=== PATIENT | male | born 1945 ===

== ENCOUNTER 2017-01-23 07:15 | Inpatient (IN) ==
--- NOTE | 2017-01-18 09:33 | Cardiothoracic History & Phys ---
History of Present Illness Chief complaint: Shortness of breath and chest discomfort History of present illness: Mr. Mendez is a 71 year old male who is been followed by Dr. Doe for some time with a known diagnosis of aortic stenosis. He has become increasingly symptomatic over the past several months and Dr. Doe felt that he was approaching the point where he would need aortic valve replacement. His echocardiogram revealed a valve area of 0.7 cm. Patient underwent outpatient cardiac catheterization demonstrating critical coronary disease and was advised to have bypass surgery as well as aortic valve replacement. Patient is admitted for that purpose. Past medical history: Patient has had type 2 diabetes mellitus for some time controlled with oral medications. He also has hypercholesterolemia and hypertension. 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 Patient also has a history of appendectomy. Patient is a former smoker but quit smoking and 1996. Review of systems is noncontributory. Physical examination patient is well-developed well-nourished [place] male in no acute distress. Examination head eyes ears nose and throat show the pupils are equal react to light and extraocular motions are intact. Oropharynx is benign. Examination of the neck showed bilateral transmitted bruits but there is no thyromegaly and there are no masses. Examination of the lungs show that they are clear to percussion and auscultation and examination the heart shows a harsh systolic murmur heard best along left sternal border and radiating to the neck. There are no gallop rhythms heard. Examination of the abdomen shows that it is soft and nontender and there are no masses or organomegaly. Examination extremities shows absence below the knee of the right leg. Neurological examination is grossly within normal limits. Assessment: Aortic valve stenosis and coronary artery disease. Plan: Aortic valve replacement and coronary bypass grafting on Tuesday, 2016. Home Medications Medication Instructions Recorded Confirmed Type Aspirin [Ecotrin] 81 mg PO DAILY 10/21/14 01/14/17 History Exenatide [Byetta] 10 mcg SQ BID 10/21/14 01/14/17 History Latanoprost 0.005% Oph Soln 1 drop BOTH EYES BEDTIME 10/21/14 01/14/17 History [Xalatan 0.005% Oph Soln] Lisinopril [Zestril] 40 mg PO DAILY 10/21/14 01/14/17 History Simvastatin [Zocor] 40 mg PO BEDTIME 10/21/14 01/14/17 History Timolol 0.5% Oph Soln [Timoptic 1 drop BOTH EYES DAILY 10/21/14 01/14/17 History 0.5%] amLODIPine [Norvasc] 20 mg PO DAILY 10/21/14 01/14/17 History glipiZIDE [Glipizide] 10 mg PO DAILY 10/21/14 01/14/17 History metFORMIN [Glucophage] 850 mg PO BID W/MEALS 10/21/14 01/14/17 History Levothyroxine Tab [Synthroid Tab] 112 mcg PO DAILY@0700 01/13/17 01/14/17 History Saxagliptin HCl [Onglyza] 5 mg PO DAILY 01/13/17 01/14/17 History Allergies Allergy/AdvReac Type Severity Reaction Status Date / Time No Known Allergies Allergy Verified 01/14/17 06:58 Medical,Surgical,& Family Hx - Medical History Cardio: History of: Hypertension, Valvular Heart Disease (moderate aortic stenosis and mild mitral insufficiency), Cardiovascular Problems (HEART MURMUR SEES DR. 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
[~2017-01-23 07:15] MED LIST: CHLORHEXIDINE 4% SOLN 118 ML BOTTLE TOP SCH; DEXTROSE 50% 25 GM/50 ML SYRINGE IV PRN; DEXTROSE 50% 25 GM/50 ML VIAL IV PRN; GLUCAGON 1 MG VIAL IM PRN
[2017-01-23] MEDS ORDERED: CEFUROXIME INJ 1,500 MG in SODIUM CHLORIDE 0.9% 100 ML IV ONE (09:18)
[2017-01-23 10:47] LABS: Basophils % 1.1 % (0.0-0.8); Eosinophils # 0.1 10*3/uL (0.0-0.87); Eosinophils % 3.5 % (0.00-10.9); Hematocrit 35.3 VOL% (42.0-52.0); Hemoglobin 12.2 GM/DL (14.0-18.0); Immature Granulocytes % 0.3 %; Immature Granulocytes Absolute 0.01 #; Mean Corpuscular HGB Conc 34.6 GM/DL (32-36); Mean Corpuscular Hemoglobin 30 PG (27-34); Mean Corpuscular Volume 85.7 FL (87-102); Monocytes # 0.3 10*3/uL (0.11-0.8); Monocytes % 7.5 % (1.7-12.7); Neutrophils # 2.3 10*3/uL (1.4-7.4); Neutrophils % 61.6 % (38.7-73.9); Platelet Count 253 T/CUMM (130-400); Red Blood Count 4.12 MC/CUMM (3.8-5.5); Red Cell Distribution Width 13.2 % (9.3-17.3); White Blood Count 3.7 T/CUMM (4-12)
[2017-01-23 11:23] LABS: Albumin 4.1 G/DL (3.4-5.0); Bilirubin,Total 0.5 MG/DL (0.2-1.0); Calcium 8.8 MG/DL (8.5-10.1); Osmolality,Calculated 275.7 MOS/KG (273-304); Potassium 4.4 MMOL/L (3.5-5.1); Total Protein 7.5 G/DL (6.4-8.3)
[2017-01-23] MEDS: CHLORHEXIDINE 0.12% ORAL RINSE 60 ML BOTTLE SWISH/SPIT SCH ×3 (12:24→20:46)
[2017-01-23] MEDS: SODIUM CHLORIDE 0.9% 1,000 ML IV SCH ×2 (12:26→16:06)
--- NOTE | 2017-01-23 13:24 | XRay Report ---
XR chest 2V Date: 01/23/2017 9:24 AM History: Coronary artery disease Comparison: 01/06/2017 Technique: PA and lateral chest Findings: The heart remains normal in size with calcification in the aortic knob. Calcified granulomata/nodes with chronic scarring. Atelectasis at the lung bases with cardiac fat pads. Stable pulmonary nodule in the right midlung zone. Degenerative changes are noted. Impression: Chronic scarring in the lungs with stable right pulmonary nodule. Progressive atelectasis at the lung bases. PROCEDURE INTERPRETED AT [facility] DEPARTMENT OF RADIOLOGY Final Report Signed by: Dr. Jacqueline Grijalva
--- NOTE | 2017-01-23 14:24 | EKG Report ---
Stationary ECG Study [facility] Test Date: 01/23/2017 2:22:57 PM Pat Name: LEAH JUÁREZ Department: Room: 268 Gender: M Chief Controller Station: : 1945 Requested by: Partha Koenig Order Number: [id number] Reading MD: KATHERINE CHOUDHURY Intervals [place] Rate: 74 P: 41 IN: 179 QRS: -65 QRSD: 146 T: 30 QT: 401 QTc: 429 Interpretive Statements SINUS RHYTHM RIGHT BUNDLE BRANCH BLOCK LEFT ANTERIOR FASCICULAR BLOCK Electronically Signed On 01-24-17 14:52:12 CDT by KATHERINE CHOUDHURY [email or web address]
[2017-01-23 15:20] LABS: ABG Base Excess -0.6 MMOL/L (-2.5-2.5); ABG HCO3 23.9 MMOL/L (20-26); ABG Oxygen Saturation 95.9 % (95-100); ABG PCO2 40.5 MM HG (35-48); ABG PH 7.387 (7.35-7.45); ABG TCO2 21.8 MMOL/L (23-27); Allen Test Positive
[2017-01-23] MEDS: LEVOTHYROXINE 112 MCG TABLET PO SCH ×2 (15:42→15:47)
[2017-01-23] MEDS: glipiZIDE 10 MG TABLET PO SCH ×2 (15:43→15:46)
[2017-01-23] MEDS: sitaGLIPtin 100 MG TABLET PO SCH ×3 (15:43→15:45)
[2017-01-23] MEDS: ASPIRIN EC 81 MG TABLET PO SCH ×2 (15:43→15:46)
[2017-01-23] MEDS: amLODIPine 10 MG TABLET PO SCH ×2 (15:43→15:45)
[2017-01-23] MEDS: LATANOPROST 0.005% OPH SOLN 2.5 ML BOTTLE BOTH EYES SCH ×3 (15:44→20:45)
[2017-01-23] MEDS: SIMVASTATIN 40 MG TABLET PO SCH ×3 (15:44→20:45)
[2017-01-23] MEDS: TIMOLOL 0.5% OPH SOLN 5 ML BOTTLE BOTH EYES SCH ×2 (15:44→15:45)
[2017-01-23] MEDS: LISINOPRIL 20 MG TABLET PO SCH ×2 (15:44→15:45)
[2017-01-24] MEDS ORDERED: VANCOMYCIN 1,000 MG VIAL ONE (04:41)
[2017-01-24] MEDS ORDERED: PAPAVERINE 60 MG/2 ML VIAL ONE (04:41)
[2017-01-24] MEDS ORDERED: LORazepam 1 MG TABLET PO ONE (05:30)
[2017-01-24] MEDS ORDERED: FAMOTIDINE 20 MG TABLET PO ONE (05:30)
[2017-01-24] MEDS: LISINOPRIL 20 MG TABLET PO SCH ×2 (05:40→11:28)
[2017-01-24] MEDS: amLODIPine 10 MG TABLET PO SCH ×2 (05:40→11:28)
[2017-01-24] MEDS ORDERED: CEFUROXIME INJ 1,500 MG in SODIUM CHLORIDE 0.9% 100 ML IV ONE (06:00)
[2017-01-24] MEDS: LEVOTHYROXINE 112 MCG TABLET PO SCH (06:08)
[2017-01-24] MEDS ORDERED: PHENYLEPHRINE 20 MG/250 ML PREMIX IV ONE (06:45)
[2017-01-24] MEDS ORDERED: PHENYLEPHRINE 1 MG/10 ML SYRINGE IV ONE (06:45)
[2017-01-24] MEDS ORDERED: LIDOCAINE 1% 5 ML VIAL ONE (06:45)
[2017-01-24] MEDS ORDERED: NITROGLYCERIN 50 MG/250 ML BOTTLE IV ONE (06:45)
[2017-01-24] MEDS ORDERED: CALCIUM CHLORIDE 1,000 MG/10 ML SYRINGE IV ONE ×2 (06:45→07:39)
[2017-01-24] MEDS ORDERED: VECURONIUM 10 MG VIAL IV ONE (06:45)
[2017-01-24] MEDS ORDERED: NITROPRUSSIDE 50 MG/2 ML VIAL ONE (07:39)
[2017-01-24] MEDS ORDERED: PHENYLEPHRINE DRIP 40 MG/250 ML PREMIX IV ONE (07:39)
[2017-01-24] MEDS ORDERED: ALBUMIN 5% 12.5 GM/250 ML VIAL IV ONE ×2 (07:40→07:41)
[2017-01-24] MEDS ORDERED: POTASSIUM CHLORIDE RIDER 100 ML IV ONE (07:40)
[2017-01-24] MEDS ORDERED: INSULIN REGULAR DRIP 100 ML IV ONE (07:43)
[2017-01-24 07:51] LABS: ABG Base Excess -1.7 MMOL/L (-2.5-2.5); ABG HCO3 23.1 MMOL/L (20-26); ABG Oxygen Saturation 99.9 % (95-100); ABG PCO2 43.8 MM HG (35-48); ABG PH 7.348 (7.35-7.45); ABG TCO2 21.8 MMOL/L (23-27); Glucose Heart Surgery 172 MG/DL (74-106); Hematocrit Heart Surgery 33.4 PERCENT (42-52); Hemoglobin Heart Surgery 10.8 G/DL (14.0-18.0); Ionized Calcium Arterial 1.12 MMOL/L (1.21-1.46); PCO2 Patient Temp Arterial 43.8 MMHG; PH Patient Temp Arterial 7.348; Patient Temperature 37 CELCIUS; Potassium Heart/CVR 3.8 MMOL/L (3.5-5.1); Sodium Heart/CVR 139 MMOL/L (135-145)
[2017-01-24 07:55] LABS: Apearance,Urine CLEAR (Clear); Bilirubin,Urine Negative (Negative); Blood, Urine Negative (Negative); Glucose,Urine (UA) 150 mg/dL (Negative); Hyaline Casts,Urine 1 /LPF (0-3); Ketones,Urine 5 mg/dL (Negative); Nitrite,Urine Negative (Negative); Protein,Urine Negative; RBC,Urine 1 /HPF (0-4); Urine Color Straw (Yellow); WBC,Urine <1 /HPF (0-6)
[2017-01-24] MEDS ORDERED: DEXTROSE 5% KCL 20 MEQ 20 MEQ/1,000 ML BAG IV ONE (09:06)
[2017-01-24] MEDS ORDERED: PHENYLEPHRINE DRIP 20 MG/250 ML PREMIX IV ONE (09:06)
[2017-01-24] MEDS ORDERED: ALBUMIN 25% 25 GM/100 ML VIAL IV ONE (09:06)
[2017-01-24] MEDS ORDERED: PROTAMINE SULFATE 250 MG/25 ML VIAL IV ONE (09:06)
[2017-01-24] MEDS ORDERED: SODIUM BICARBONATE 50 MEQ/50 ML SYRINGE IV ONE (09:06)
[2017-01-24] MEDS ORDERED: MANNITOL 12.5 GM/50 ML VIAL IV ONE (09:07)
[2017-01-24] MEDS ORDERED: methylPREDNISolone SOD SUC 1,000 MG/8 ML VIAL ONE (09:07)
[2017-01-24] MEDS ORDERED: MAGNESIUM SULFATE 1 GM/2 ML VIAL ONE (09:07)
[2017-01-24] MEDS ORDERED: FUROSEMIDE 20 MG/2 ML VIAL ONE (09:07)
[2017-01-24] MEDS ORDERED: HEPARIN 10,000 UNIT/10 ML VIAL ONE (09:07)
[2017-01-24] MEDS ORDERED: PROTAMINE SULFATE 50 MG/5 ML VIAL IV ONE ×3 (09:07→13:51)
[2017-01-24 10:04] LABS: Hematocrit Heart Surgery 20.3 PERCENT (42-52); Hemoglobin Heart Surgery 6.5 G/DL (14.0-18.0); PCO2 Patient Temp Venous 37.7 MM HG; PH Patient Temp Venous 7.381; PO2 Patient Temp Venous 33.5 MM HG; Potassium Heart/CVR 4.4 MMOL/L (3.5-5.1); VBG Base Excess -2.2 MEQ/L (0-4); VBG HCO3 22.3 MEQ/L (24-28); VBG Oxygen Saturation 71.3 %; VBG PCO2 43.6 MMHG (41-51); VBG PH 7.339; VBG PO2 41.2 MMHG (17-40)
[2017-01-24] MEDS ORDERED: INSULIN REGULAR 100 UNIT/ML ONE (10:15)
[2017-01-24 11:05] LABS: Hematocrit Heart Surgery 22.8 PERCENT (42-52); Hemoglobin Heart Surgery 7.3 G/DL (14.0-18.0); PCO2 Patient Temp Venous 36.8 MM HG; PH Patient Temp Venous 7.427; PO2 Patient Temp Venous 34.6 MM HG; VBG Base Excess 0.3 MEQ/L (0-4); VBG HCO3 24.4 MEQ/L (24-28); VBG Oxygen Saturation 75.5 %; VBG PCO2 42.5 MMHG (41-51); VBG PH 7.384; VBG PO2 42.6 MMHG (17-40)
[2017-01-24] MEDS: sitaGLIPtin 100 MG TABLET PO SCH (11:28)
[2017-01-24] MEDS: glipiZIDE 10 MG TABLET PO SCH (11:28)
[2017-01-24] MEDS: CHLORHEXIDINE 0.12% ORAL RINSE 60 ML BOTTLE SWISH/SPIT SCH ×2 (11:28→21:41)
[2017-01-24] MEDS: ASPIRIN EC 81 MG TABLET PO SCH (11:29)
[2017-01-24] MEDS: TIMOLOL 0.5% OPH SOLN 5 ML BOTTLE BOTH EYES SCH (11:29)
[2017-01-24 12:32] LABS: ABG Base Excess -1.1 MMOL/L (-2.5-2.5); ABG HCO3 23.5 MMOL/L (20-26); ABG PCO2 42.2 MM HG (35-48); ABG PH 7.366 (7.35-7.45); Glucose Heart Surgery 286 MG/DL (74-106); Hematocrit Heart Surgery 20.1 PERCENT (42-52); Ionized Calcium Arterial 1.12 MMOL/L (1.21-1.46); PCO2 Patient Temp Arterial 42.2 MMHG; PH Patient Temp Arterial 7.366; Patient Temperature 37 CELCIUS; Potassium Heart/CVR 4.4 MMOL/L (3.5-5.1); Sodium Heart/CVR 134 MMOL/L (135-145)
[2017-01-24 12:34] LABS: Hemoglobin Heart Surgery 6.4 G/DL (14.0-18.0)
[2017-01-24] MEDS ORDERED: SEVOFLURANE 1 UNIT/15 MINUTE INH ONE (13:43)
[2017-01-24] MEDS ORDERED: SUFentanil 250 MCG/5 ML AMP ONE (13:43)
[2017-01-24] MEDS ORDERED: LACTATED RINGERS 2,000 ML IV ONE (13:44)
[2017-01-24] MEDS ORDERED: MIDAZOLAM 10 MG/2 ML VIAL ONE (13:44)
[2017-01-24] MEDS ORDERED: SODIUM CHLORIDE 0.9% 100 ML IV ONE (13:44)
[2017-01-24] MEDS ORDERED: SODIUM CHLORIDE 0.9% 2,000 ML IV ONE (13:44)
[2017-01-24] MEDS: SODIUM CHLORIDE 0.45% 1,000 ML IV SCH ×2 (13:45)
[2017-01-24] MEDS: LACTATED RINGERS 1,000 ML IV PRN ×3 (13:45→17:18)
[2017-01-24] MEDS ORDERED: CALCIUM CHLORIDE 1,000 MG/10 ML SYRINGE IV PRN (13:46)
[2017-01-24] MEDS ORDERED: ONDANSETRON 4 MG/2 ML VIAL IV PRN (13:46)
[2017-01-24] MEDS ORDERED: MORPHINE 10 MG/1 ML VIAL IV PRN (13:46)
[2017-01-24] MEDS ORDERED: LACTATED RINGERS 250 ML IV PRN (13:46)
[2017-01-24] MEDS ORDERED: INSULIN REGULAR 100 UNIT/ML IV ONE (13:46)
[2017-01-24] MEDS ORDERED: INSULIN REGULAR 100 UNIT/ML IV PRN (13:46)
[2017-01-24] MEDS ORDERED: VECURONIUM 10 MG VIAL IV PRN ×2 (13:46)
[2017-01-24] MEDS ORDERED: ACETAMINOPHEN 650 MG SUPP RECTAL PRN (13:46)
[2017-01-24] MEDS ORDERED: MIDAZOLAM 10 MG/2 ML VIAL IV PRN (13:46)
[2017-01-24] MEDS ORDERED: MORPHINE 2 MG/1 ML SYRINGE IV PRN (13:46)
[2017-01-24] MEDS ORDERED: NITROPRUSSIDE 100 MG in DEXTROSE 5% 250 ML IV PRN (13:46)
[2017-01-24] MEDS ORDERED: MAGNESIUM SULF RIDER 4 GM in PREMIX 1 EACH IV PRN (13:46)
[2017-01-24] MEDS ORDERED: MAGNESIUM SULF RIDER 2 GM in PREMIX 1 EACH IV PRN (13:46)
[2017-01-24] MEDS ORDERED: DEXTROSE 50% 25 GM/50 ML SYRINGE IV PRN ×2 (13:46)
[2017-01-24] MEDS ORDERED: PHENYLEPHRINE DRIP 40 MG/250 ML PREMIX IV PRN (13:46)
[2017-01-24] MEDS ORDERED: POTASSIUM CHLORIDE RIDER 10 MEQ in PREMIX 1 EACH IV PRN (13:46)
[2017-01-24] MEDS ORDERED: KETOROLAC 30 MG/1 ML VIAL IV SCH (14:00)
[2017-01-24] MEDS ORDERED: INSULIN REGULAR DRIP 100 ML IV SCH (14:00)
[2017-01-24] MEDS: ALBUMIN 5% 12.5 GM in PREMIX 1 EACH IV PRN ×2 (14:15→18:30)
--- NOTE | 2017-01-24 14:17 | Operative Note ---
Date of procedure: 01/24/17 Pre-op diagnosis: Aortic stenosis and coronary artery disease Post-op diagnosis: same Procedure: Procedure: Aortic valve replacement with a 23 mm pericardial prosthesis and coronary bypass grafting 2 with a left internal mammary graft to the obtuse marginal coronary artery and a right internal mammary artery graft to the anterior descending coronary artery used as a free graft. Findings: Patient is a 71-year-old man who presented with symptoms of chest discomfort and shortness of breath of increasing severity. Cardiac catheterization demonstrated critical aortic stenosis and three-vessel coronary artery disease. At the time of surgery left ventricular function was noted to be normal and a severely stenotic calcified aortic valve was removed and replaced with a 23 mm pericardial prosthesis. Coronary bypass surgery was undertaken using mammary artery grafts because the patient had reservations about having his legs cut as he has severe peripheral vascular disease and already has a BK amputation on the right. Because of this we elected to bypass only the anterior descending and the circumflex marginal coronary arteries as these appeared to be his more severe lesions. Both anterior descending and circumflex marginal were large vessels and free of disease at the site of anastomosis and the circumflex marginal was grafted with the in situ left internal mammary artery and the anterior descending coronary artery was grafted using a free graft of the right internal mammary artery. Patient tolerated the procedure well and returned to recovery in satisfactory condition. Procedure: Patient brought to the operating room placed in the operating table in supine position. After satisfactory induction of general anesthesia the chest abdomen and legs were prepped and draped in sterile fashion. Sternotomy incision was made and the sternum was divided and the heart suspended in a pericardial cradle. The left internal mammary artery was dissected free and prepared as an arterial graft. Right internal mammary artery was also dissected free and was prepared as a free arterial graft. The patient was prepared for cardiopulmonary bypass with systemic heparinization and cannulation the ascending aorta and right atrium. Cardiopulmonary bypass was begun and the aorta was crossclamped and the heart arrested with cardioplegia solution injected into the aortic root. Heart was protected during the period of crossclamping with topical saline slush. Distal anastomoses were constructed as noted above and then an aortotomy was made and the aortic valve was removed and the aortic annulus rimmed with horizontal mattress sutures of 3- 0 Ethibond. These were passed through the sewing ring of a 23 mm pericardial prosthesis which was lowered and tied into place. The aortotomy was closed with 3-0 Prolene and then a proximal anastomosis was constructed between the inflow end of the right internal mammary graft and the internal mammary pedicle. Following this the patient was weaned from cardiopulmonary bypass after unclamping the aorta. This was achieved without significant difficulty and the heparin effect was reversed with protamine and decannulation carried out with a defects in the ascending aorta and right atrium closed with 3-0 Prolene. Operative field was inspected for hemostasis and this was considered adequate incision was closed with interrupted stainless steel wire and the sternum and 0 Monopril in the presternal fascia. Skin was closed with running subcuticular Monocryl. Chest tubes were left in each hemithorax and the anterior mediastinum and all 3 were brought out through separate stab incisions. Sterile dressings were applied and the patient was returned to recovery in satisfactory condition. Anesthesia: [place] Surgeon / Physician: Partha Márquez Estimated blood loss: other (Unable to determine because of cardiopulmonary bypass) Condition: stable Disposition: PACU Results - Labs CBC & BMP: 01/24/17 12:31 01/23/17 10:39 Discharge Plan - Discharge Medications No Action Simvastatin [Zocor] 40 mg PO BEDTIME metFORMIN [Glucophage] 850 mg PO BID W/MEALS Lisinopril [Zestril] 40 mg PO DAILY Latanoprost 0.005% Oph Soln [Xalatan 0.005% Oph Soln] 1 drop BOTH EYES BEDTIME glipiZIDE [Glipizide] 10 mg PO DAILY Exenatide [Byetta] 10 mcg SQ BID amLODIPine [Norvasc] 20 mg PO DAILY Aspirin [Ecotrin] 81 mg PO DAILY Timolol 0.5% Oph Soln [Timoptic 0.5%] 1 drop BOTH EYES DAILY Saxagliptin HCl [Onglyza] 5 mg PO DAILY Levothyroxine Tab [Synthroid Tab] 112 mcg PO DAILY@0700 - Follow Up or Referral - Forms/Instructions
[2017-01-24 14:25] LABS: Basophils % 0.2 % (0.0-0.8); Eosinophils % 0.2 % (0.00-10.9); Hematocrit 21.7 VOL% (42.0-52.0); Hemoglobin 7.8 GM/DL (14.0-18.0); Immature Granulocytes % 0.6 %; Immature Granulocytes Absolute 0.05 #; Lymphocytes # 0.6 10*3/uL (1.4-4.0); Lymphocytes % 7.4 % (21.2-54.2); Mean Corpuscular HGB Conc 35.9 GM/DL (32-36); Mean Corpuscular Hemoglobin 31 PG (27-34); Mean Corpuscular Volume 85.4 FL (87-102); Mean Platelet Volume 9.4 FL (9.6-12.0); Monocytes # 0.3 10*3/uL (0.11-0.8); Monocytes % 3.4 % (1.7-12.7); Neutrophils # 7.5 10*3/uL (1.4-7.4); Neutrophils % 88.2 % (38.7-73.9); Platelet Count 122 T/CUMM (130-400); Red Blood Count 2.54 MC/CUMM (3.8-5.5); Red Cell Distribution Width 13.6 % (9.3-17.3); White Blood Count 8.5 T/CUMM (4-12)
[2017-01-24 14:26] LABS: ABG Base Excess -1.8 MMOL/L (-2.5-2.5); ABG HCO3 22.9 MMOL/L (20-26); ABG Oxygen Saturation 97.1 % (95-100); ABG PCO2 40.6 MM HG (35-48); ABG PH 7.368 (7.35-7.45); ABG PO2 83.9 MM HG (80-95); ABG TCO2 21.9 MMOL/L (23-27); Glucose Heart Surgery 247 MG/DL (74-106); Hemoglobin Heart Surgery 7.7 G/DL (14.0-18.0); Potassium Heart/CVR 4.2 MMOL/L (3.5-5.1)
[2017-01-24 14:38] LABS: INR 1.2; PT Patient Result 13.3 SECS
[2017-01-24 14:44] LABS: Albumin 2.8 G/DL (3.4-5.0); Bilirubin,Total 1.1 MG/DL (0.2-1.0); Calcium 8.2 MG/DL (8.5-10.1); Magnesium 1.8 MG/DL (1.8-2.4); Osmolality,Calculated 284.5 MOS/KG (273-304); Potassium 4.4 MMOL/L (3.5-5.1); Total Protein 4.7 G/DL (6.4-8.3)
[2017-01-24 14:48] LABS: CKMB % 7.1 %
[2017-01-24 14:52] LABS: Troponin I Only 13.9 NG/ML (0.00-0.045)
[2017-01-24] MEDS: SODIUM CHLORIDE 0.9% 1,000 ML IV SCH (15:50)
[2017-01-24] MEDS: POTASSIUM CHLORIDE RIDER 20 MEQ in PREMIX 1 EACH IV PRN ×2 (16:00→22:16)
[2017-01-24] MEDS: MIDAZOLAM 2 MG/2 ML VIAL IV PRN ×3 (16:00→20:05)
[2017-01-24 16:03] LABS: ABG HCO3 23.6 MMOL/L (20-26); ABG Oxygen Saturation 98.5 % (95-100); ABG PCO2 39.9 MM HG (35-48); ABG PH 7.385 (7.35-7.45); ABG TCO2 22.3 MMOL/L (23-27); Glucose Heart Surgery 214 MG/DL (74-106); Hematocrit Heart Surgery 24.4 PERCENT (42-52); Hemoglobin Heart Surgery 7.8 G/DL (14.0-18.0)
--- NOTE | 2017-01-24 16:08 | XRay Report ---
Portable chest. Indication: Line placement. Comparison: January 23, 2017. The heart is normal in size. The lung volumes are small. There has been a previous median sternotomy. A Boston-Ruth catheter is in place with its distal tip in the pulmonary outflow on the left. A right IJ line distal tip is in the SVC. There are 2 linear objects projecting over the mediastinum, neither of which terminate above the rika. I cannot definitely see their distal tips. This may be portions of a nasogastric tube. There is also a tube in the left upper quadrant of the abdomen, probably a mediastinal chest tube. A prosthetic valve is visible over the heart. No pneumothorax. No pleural effusion. Impression: Small lung volumes. Clear lung lee. Midline tubes are difficult to clearly delineate. If necessary clinically, chest for nasogastric tube recommended. PROCEDURE INTERPRETED AT [facility] DEPARTMENT OF RADIOLOGY Final Report Signed by: Dr. Avis Youngblood
[2017-01-24] MEDS: KETOROLAC 30 MG/1 ML VIAL IV SCH ×2 (17:32→23:45)
[2017-01-24 17:47] LABS: ABG Base Excess -1.4 MMOL/L (-2.5-2.5); ABG HCO3 23.2 MMOL/L (20-26); ABG Oxygen Saturation 95.9 % (95-100); ABG PCO2 43.8 MM HG (35-48); ABG PO2 77.2 MM HG (80-95); ABG TCO2 22.5 MMOL/L (23-27); Glucose Heart Surgery 180 MG/DL (74-106); Hematocrit Heart Surgery 26.9 PERCENT (42-52); Hemoglobin Heart Surgery 8.7 G/DL (14.0-18.0); Potassium Heart/CVR 4.1 MMOL/L (3.5-5.1)
[2017-01-24] MEDS: CEFUROXIME INJ 1,500 MG in SODIUM CHLORIDE 0.9% 100 ML IV SCH (18:50)
[2017-01-24] MEDS ORDERED: FUROSEMIDE 40 MG/4 ML VIAL IV ONE (19:43)
[2017-01-24] MEDS ORDERED: NITROGLYCERIN DRIP 50 MG/250 ML BOTTLE IV SCH (20:00)
[2017-01-24 20:05] LABS: ABG Base Excess -0.3 MMOL/L (-2.5-2.5); ABG HCO3 24.2 MMOL/L (20-26); ABG Oxygen Saturation 99.8 % (95-100); ABG PH 7.444 (7.35-7.45); ABG TCO2 21.1 MMOL/L (23-27); Glucose Heart Surgery 147 MG/DL (74-106); Hematocrit Heart Surgery 30.9 PERCENT (42-52)
[2017-01-24] MEDS ORDERED: BYETTA 10 MCG SQ SCH (21:00)
[2017-01-24] MEDS ORDERED: CEFUROXIME INJ 1,500 MG in SODIUM CHLORIDE 0.9% 100 ML IV SCH (21:39)
[2017-01-24 22:10] LABS: ABG Base Excess 0.7 MMOL/L (-2.5-2.5); ABG HCO3 25.1 MMOL/L (20-26); ABG Oxygen Saturation 99.9 % (95-100); ABG PCO2 32.7 MM HG (35-48); ABG PH 7.471 (7.35-7.45); ABG TCO2 21.4 MMOL/L (23-27); Glucose Heart Surgery 125 MG/DL (74-106); Hematocrit Heart Surgery 32.9 PERCENT (42-52); Hemoglobin Heart Surgery 10.6 G/DL (14.0-18.0); Potassium Heart/CVR 3.6 MMOL/L (3.5-5.1)
[2017-01-24 23:06] LABS: CKMB % 3.2 %
[2017-01-24 23:19] LABS: Troponin I Only 26.2 NG/ML (0.00-0.045)
[2017-01-25 00:27] LABS: ABG Base Excess 0.1 MMOL/L (-2.5-2.5); ABG HCO3 22.4 MMOL/L (20-26); ABG Oxygen Saturation 98.2 % (95-100); ABG PCO2 28.8 MM HG (35-48); ABG PH 7.508 (7.35-7.45); ABG PO2 167.8 MM HG (80-95); ABG TCO2 23.2 MMOL/L (23-27); Glucose Heart Surgery 102 MG/DL (74-106); Hemoglobin Heart Surgery 10.9 G/DL (14.0-18.0); Potassium Heart/CVR 3.9 MMOL/L (3.5-5.1)
[2017-01-25 01:39] LABS: ABG Base Excess 0.4 MMOL/L (-2.5-2.5); ABG HCO3 24.8 MMOL/L (20-26); ABG PCO2 36.6 MM HG (35-48); ABG PH 7.432 (7.35-7.45); Glucose Heart Surgery 123 MG/DL (74-106); Hematocrit Heart Surgery 32.2 PERCENT (42-52); Hemoglobin Heart Surgery 10.4 G/DL (14.0-18.0); Potassium Heart/CVR 3.7 MMOL/L (3.5-5.1)
[2017-01-25] MEDS: POTASSIUM CHLORIDE RIDER 20 MEQ in PREMIX 1 EACH IV PRN ×2 (02:02→04:43)
[2017-01-25 04:34] LABS: Basophils % 0.1 % (0.0-0.8); Hematocrit 30.7 VOL% (42.0-52.0); Immature Granulocytes % 0.4 %; Immature Granulocytes Absolute 0.04 #; Lymphocytes # 0.8 10*3/uL (1.4-4.0); Lymphocytes % 8.1 % (21.2-54.2); Mean Corpuscular HGB Conc 35.8 GM/DL (32-36); Mean Corpuscular Hemoglobin 30 PG (27-34); Mean Corpuscular Volume 84.6 FL (87-102); Mean Platelet Volume 10.3 FL (9.6-12.0); Monocytes # 0.5 10*3/uL (0.11-0.8); Monocytes % 4.9 % (1.7-12.7); Neutrophils # 8.6 10*3/uL (1.4-7.4); Neutrophils % 86.5 % (38.7-73.9); Platelet Count 144 T/CUMM (130-400); Red Blood Count 3.63 MC/CUMM (3.8-5.5); Red Cell Distribution Width 14.1 % (9.3-17.3)
[2017-01-25 04:35] LABS: ABG HCO3 22.8 MMOL/L (20-26); ABG Oxygen Saturation 98.1 % (95-100); ABG PCO2 38.9 MM HG (35-48); ABG PH 7.378 (7.35-7.45); ABG TCO2 20.6 MMOL/L (23-27); Glucose Heart Surgery 142 MG/DL (74-106); Hematocrit Heart Surgery 34.3 PERCENT (42-52); Hemoglobin Heart Surgery 11.1 G/DL (14.0-18.0); Potassium Heart/CVR 3.8 MMOL/L (3.5-5.1)
[2017-01-25] MEDS: KETOROLAC 30 MG/1 ML VIAL IV SCH ×4 (04:56→23:55)
[2017-01-25 05:05] LABS: CKMB % 2.4 %
[2017-01-25 05:08] LABS: Troponin I Only 18.5 NG/ML (0.00-0.045)
[2017-01-25 05:29] LABS: Albumin 3.2 G/DL (3.4-5.0); Bilirubin,Direct 0.3 MG/DL (0.0-0.20); Bilirubin,Total 1.1 MG/DL (0.2-1.0); Calcium 7.9 MG/DL (8.5-10.1); Magnesium 2.2 MG/DL (1.8-2.4); Osmolality,Calculated 282.4 MOS/KG (273-304); Total Protein 5.3 G/DL (6.4-8.3)
[2017-01-25] MEDS ORDERED: FUROSEMIDE 40 MG/4 ML VIAL IV ONE (05:43)
[2017-01-25 06:05] LABS: ABG Base Excess -1.5 MMOL/L (-2.5-2.5); ABG HCO3 23.2 MMOL/L (20-26); ABG Oxygen Saturation 98.9 % (95-100); ABG PCO2 39.9 MM HG (35-48); ABG PH 7.378 (7.35-7.45); ABG TCO2 21.3 MMOL/L (23-27); Glucose Heart Surgery 139 MG/DL (74-106); Hematocrit Heart Surgery 32.1 PERCENT (42-52); Hemoglobin Heart Surgery 10.4 G/DL (14.0-18.0); Potassium Heart/CVR 4.3 MMOL/L (3.5-5.1)
[2017-01-25] MEDS: CEFUROXIME INJ 1,500 MG in SODIUM CHLORIDE 0.9% 100 ML IV SCH ×2 (06:43→18:03)
[2017-01-25 06:54] LABS: ABG HCO3 23.5 MMOL/L (20-26); ABG Oxygen Saturation 96.7 % (95-100); ABG PCO2 38.9 MM HG (35-48); ABG PH 7.392 (7.35-7.45); ABG PO2 85.3 MM HG (80-95); ABG TCO2 21.4 MMOL/L (23-27); Glucose Heart Surgery 127 MG/DL (74-106); Hematocrit Heart Surgery 32.1 PERCENT (42-52); Hemoglobin Heart Surgery 10.4 G/DL (14.0-18.0); Potassium Heart/CVR 4.3 MMOL/L (3.5-5.1)
--- NOTE | 2017-01-25 07:46 | EKG Report ---
Stationary ECG Study [facility] Test Date: 01/25/2017 7:46:46 AM Pat Name: LEAH JUÁREZ Department: Room: 104 Gender: M Vp: CATHY : 1945 Requested by: Partha Koenig Order Number: [id number] Reading MD: KATHERINE CHOUDHURY Intervals [place] Rate: 61 P: 37 UT: 234 QRS: -31 QRSD: 122 T: -10 QT: 428 QTc: 431 Interpretive Statements SINUS RHYTHM WITH PROLONGED UT INTERVAL MARKED LEFT AXIS DEVIATION POSSIBLE RIGHT VENTRICULAR CONDUCTION DELAY Electronically Signed On 01-25-17 09:39:45 CDT by KATHERINE CHOUDHURY [email or web address]
[2017-01-25] MEDS ORDERED: GLUCAGON 1 MG VIAL IM PRN (07:53)
[2017-01-25] MEDS ORDERED: DEXTROSE 50% 25 GM/50 ML VIAL IV PRN (07:53)
--- NOTE | 2017-01-25 07:53 | Cardiothoracic Progress Note ---
Cardiothoracic Subjective Interval history: Patient is awake alert and extubated. Vital signs have been stable through the night and he is in normal sinus rhythm this morning. Cardiac output is 4.8 L/ min and cardiac enzymes are slightly elevated for postoperative day 1 but not markedly so given his long ischemic time. Blood gases are satisfactory postextubation and urine output has been good and creatinine is 1.0 this morning. Chest tube drainage is now minimal and chest tubes are removed. I am going to plan to watch him in intensive care for another 24 hours largely because of the magnitude of his operation and because of his initial blood loss. Overall his progress seems satisfactory for postoperative day 1. Exam (Progress Note) - Constitutional Vitals: Period Temp Pulse Resp BP Sys/Padron Pulse Ox Last 24 Hr 97.5 F-99.9 F 59-80 8-19 102-152/50-69 99-100 Result/EKG - Labs CBC & BMP: 01/25/17 04:26 01/25/17 04:26 Labs: Laboratory Results - last 24 hr 01/23/17 01/24/17 01/24/17 10:39 07:10 07:50 WBC RBC Hgb Hct MCV MCH MCHC RDW Plt Count 56 L D MPV Neut % (Auto) Lymph % (Auto) [place] % (Auto) Eos % (Auto) Baso % (Auto) Neut # (Auto) Lymph # (Auto) [place] # (Auto) Eos # (Auto) Baso # (Auto) Immature Gran % Nucleated RBC % Immature Gran # Nucleated RBCs # Immature Plt Fraction INR PT Patient/Control Mix Circ Anticoag PTT Patient Temperature ABG pH ABG pH at Pt Temp ABG pCO2 ABG pCO2 at Pt Temp ABG pO2 ABG pO2 at Pt Temp ABG HCO3 ABG Total CO2 ABG O2 Saturation ABG Base Excess ABG Sodium VBG pH VBG pCO2 VBG pO2 VBG HCO3 VBG Total CO2 VBG O2 Saturation VBG Base Excess Hemoglobin Hematocrit Potassium Glucose Ionized Calcium FiO2 Sodium Chloride Carbon Dioxide Anion Gap BUN Creatinine GFR Calculation BUN/Creatinine Ratio Calculated Osmolality Calcium Venous Ioniz Calcium Magnesium Total Bilirubin Direct Bilirubin AST ALT Alkaline Phosphatase Total Creatine Kinase CK-MB (CK-2) CK and CKMB Interp Troponin I Total Protein Albumin Globulin Albumin/Globulin Ratio Urine Color Straw Urine Appearance Clear Urine pH 7.0 Ur Specific [place] 1.010 Urine Protein Negative Urine Glucose (UA) 150 Urine Ketones 5 Urine Blood Negative Urine Nitrate Negative Urine Bilirubin Negative Urine Urobilinogen 2.0 H Urine Leukocytes Negative Urine RBC 1 Urine WBC <1 Hyaline Casts 1 Ur Culture Indicated? Not indicated Blood Type A POSITIVE Antibody Screen Negative Crossmatch See Detail 01/24/17 01/24/17 01/24/17 07:50 10:02 10:59 WBC RBC Hgb Hct MCV MCH MCHC RDW Plt Count MPV Neut % (Auto) Lymph % (Auto) [place] % (Auto) Eos % (Auto) Baso % (Auto) Neut # (Auto) Lymph # (Auto) [place] # (Auto) Eos # (Auto) Baso # (Auto) Immature Gran % Nucleated RBC % Immature Gran # Nucleated RBCs # Immature Plt Fraction INR PT Patient/Control Mix Circ Anticoag PTT Patient Temperature 37 34 34 ABG pH 7.348 L ABG pH at Pt Temp 7.348 7.381 7.427 ABG pCO2 43.8 ABG pCO2 at Pt Temp 43.8 37.7 36.8 ABG pO2 277.0 H ABG pO2 at Pt Temp 277.0 33.5 34.6 ABG HCO3 23.1 ABG Total CO2 21.8 L ABG O2 Saturation 99.9 ABG Base Excess -1.7 ABG Sodium 139 133 L 134 L VBG pH 7.339 7.384 VBG pCO2 43.6 42.5 VBG pO2 41.2 H 42.6 H VBG HCO3 22.3 L 24.4 VBG Total CO2 22.5 24.0 VBG O2 Saturation 71.3 75.5 VBG Base Excess -2.2 L 0.3 Hemoglobin 10.8 L 6.5 L D 7.3 L Hematocrit 33.4 L 20.3 L 22.8 L Potassium 3.8 4.4 5.0 Glucose 172 H 327 H 272 H Ionized Calcium 1.12 L FiO2 80.00 21.00 Sodium Chloride Carbon Dioxide Anion Gap BUN Creatinine GFR Calculation BUN/Creatinine Ratio Calculated Osmolality Calcium Venous Ioniz Calcium 0.85 L 0.99 L Magnesium Total Bilirubin Direct Bilirubin AST ALT Alkaline Phosphatase Total Creatine Kinase CK-MB (CK-2) CK and CKMB Interp Troponin I Total Protein Albumin Globulin Albumin/Globulin Ratio Urine Color Urine Appearance Urine pH Ur Specific [place] Urine Protein Urine Glucose (UA) Urine Ketones Urine Blood Urine Nitrate Urine Bilirubin Urine Urobilinogen Urine Leukocytes Urine RBC Urine WBC Hyaline Casts Ur Culture Indicated? Blood Type Antibody Screen Crossmatch 01/24/17 01/24/17 01/24/17 12:31 12:31 14:18 WBC 8.5 D RBC 2.54 L D Hgb 7.8 L D Hct 21.7 L MCV 85.4 L MCH 31 MCHC 35.9 RDW 13.6 Plt Count 105 L D 122 L MPV 9.4 L Neut % (Auto) 88.2 H Lymph % (Auto) 7.4 L [place] % (Auto) 3.4 Eos % (Auto) 0.2 Baso % (Auto) 0.2 Neut # (Auto) 7.5 H Lymph # (Auto) 0.6 L [place] # (Auto) 0.3 Eos # (Auto) 0.0 Baso # (Auto) 0.0 Immature Gran % 0.6 Nucleated RBC % 0.0 Immature Gran # 0.05 Nucleated RBCs # 0.00 Immature Plt Fraction 0.0 INR PT Patient/Control Mix Circ Anticoag PTT Patient Temperature 37 ABG pH 7.366 ABG pH at Pt Temp 7.366 ABG pCO2 42.2 ABG pCO2 at Pt Temp 42.2 ABG pO2 124.0 H ABG pO2 at Pt Temp 124.0 ABG HCO3 23.5 ABG Total CO2 23.0 ABG O2 Saturation 99.0 ABG Base Excess -1.1 ABG Sodium 134 L VBG pH VBG pCO2 VBG pO2 VBG HCO3 VBG Total CO2 VBG O2 Saturation VBG Base Excess Hemoglobin 6.4 L* Hematocrit 20.1 L Potassium 4.4 Glucose 286 H Ionized Calcium 1.12 L FiO2 Sodium Chloride Carbon Dioxide Anion Gap BUN Creatinine GFR Calculation BUN/Creatinine Ratio Calculated Osmolality Calcium Venous Ioniz Calcium Magnesium Total Bilirubin Direct Bilirubin AST ALT Alkaline Phosphatase Total Creatine Kinase CK-MB (CK-2) CK and CKMB Interp Troponin I Total Protein Albumin Globulin Albumin/Globulin Ratio Urine Color Urine Appearance Urine pH Ur Specific [place] Urine Protein Urine Glucose (UA) Urine Ketones Urine Blood Urine Nitrate Urine Bilirubin Urine Urobilinogen Urine Leukocytes Urine RBC Urine WBC Hyaline Casts Ur Culture Indicated? Blood Type Antibody Screen Crossmatch 01/24/17 01/24/17 01/24/17 14:18 14:18 14:18 WBC RBC Hgb Hct MCV MCH MCHC RDW Plt Count MPV Neut % (Auto) Lymph % (Auto) [place] % (Auto) Eos % (Auto) Baso % (Auto) Neut # (Auto) Lymph # (Auto) [place] # (Auto) Eos # (Auto) Baso # (Auto) Immature Gran % Nucleated RBC % Immature Gran # Nucleated RBCs # Immature Plt Fraction INR 1.2 PT Patient/Control Mix 13.3 Circ Anticoag PTT 32.0 Patient Temperature ABG pH 7.368 ABG pH at Pt Temp ABG pCO2 40.6 ABG pCO2 at Pt Temp ABG pO2 83.9 ABG pO2 at Pt Temp ABG HCO3 22.9 ABG Total CO2 21.9 L ABG O2 Saturation 97.1 ABG Base Excess -1.8 ABG Sodium VBG pH VBG pCO2 VBG pO2 VBG HCO3 VBG Total CO2 VBG O2 Saturation VBG Base Excess Hemoglobin 7.7 L D Hematocrit 24.0 L Potassium 4.4 4.2 Glucose 243 H 247 H Ionized Calcium FiO2 Sodium 139 Chloride 106 Carbon Dioxide 24 Anion Gap 13.4 BUN 13 Creatinine 1.00 GFR Calculation 93 BUN/Creatinine Ratio 13.00 Calculated Osmolality 284.5 Calcium 8.2 L Venous Ioniz Calcium Magnesium 1.8 Total Bilirubin 1.10 H Direct Bilirubin AST 46 H ALT 21 Alkaline Phosphatase 69 Total Creatine Kinase CK-MB (CK-2) CK and CKMB Interp Troponin I Total Protein 4.7 L Albumin 2.8 L Globulin 1.9 L Albumin/Globulin Ratio 1.4 Urine Color Urine Appearance Urine pH Ur Specific [place] Urine Protein Urine Glucose (UA) Urine Ketones Urine Blood Urine Nitrate Urine Bilirubin Urine Urobilinogen Urine Leukocytes Urine RBC Urine WBC Hyaline Casts Ur Culture Indicated? Blood Type Antibody Screen Crossmatch 01/24/17 01/24/17 01/24/17 14:18 16:00 17:43 WBC RBC Hgb Hct MCV MCH MCHC RDW Plt Count MPV Neut % (Auto) Lymph % (Auto) [place] % (Auto) Eos % (Auto) Baso % (Auto) Neut # (Auto) Lymph # (Auto) [place] # (Auto) Eos # (Auto) Baso # (Auto) Immature Gran % Nucleated RBC % Immature Gran # Nucleated RBCs # Immature Plt Fraction INR PT Patient/Control Mix Circ Anticoag PTT Patient Temperature ABG pH 7.385 7.350 ABG pH at Pt Temp ABG pCO2 39.9 43.8 ABG pCO2 at Pt Temp ABG pO2 103.0 H 77.2 L ABG pO2 at Pt Temp ABG HCO3 23.6 23.2 ABG Total CO2 22.3 L 22.5 L ABG O2 Saturation 98.5 95.9 ABG Base Excess -1.0 -1.4 ABG Sodium VBG pH VBG pCO2 VBG pO2 VBG HCO3 VBG Total CO2 VBG O2 Saturation VBG Base Excess Hemoglobin 7.8 L 8.7 L Hematocrit 24.4 L 26.9 L Potassium 4.0 4.1 Glucose 214 H 180 H Ionized Calcium FiO2 Sodium Chloride Carbon Dioxide Anion Gap BUN Creatinine GFR Calculation BUN/Creatinine Ratio Calculated Osmolality Calcium Venous Ioniz Calcium Magnesium Total Bilirubin Direct Bilirubin AST ALT Alkaline Phosphatase Total Creatine Kinase 440 H CK-MB (CK-2) 31.3 H CK and CKMB Interp 7.1 Troponin I 13.900 H Total Protein Albumin Globulin Albumin/Globulin Ratio Urine Color Urine Appearance Urine pH Ur Specific [place] Urine Protein Urine Glucose (UA) Urine Ketones Urine Blood Urine Nitrate Urine Bilirubin Urine Urobilinogen Urine Leukocytes Urine RBC Urine WBC Hyaline Casts Ur Culture Indicated? Blood Type Antibody Screen Crossmatch 01/24/17 01/24/17 01/24/17 19:53 22:02 22:02 WBC RBC Hgb Hct MCV MCH MCHC RDW Plt Count MPV Neut % (Auto) Lymph % (Auto) [place] % (Auto) Eos % (Auto) Baso % (Auto) Neut # (Auto) Lymph # (Auto) [place] # (Auto) Eos # (Auto) Baso # (Auto) Immature Gran % Nucleated RBC % Immature Gran # Nucleated RBCs # Immature Plt Fraction INR PT Patient/Control Mix Circ Anticoag PTT Patient Temperature ABG pH 7.444 7.471 H ABG pH at Pt Temp ABG pCO2 34.0 L 32.7 L ABG pCO2 at Pt Temp ABG pO2 192.0 H 202.0 H ABG pO2 at Pt Temp ABG HCO3 24.2 25.1 ABG Total CO2 21.1 L 21.4 L ABG O2 Saturation 99.8 99.9 ABG Base Excess -0.3 0.7 ABG Sodium VBG pH VBG pCO2 VBG pO2 VBG HCO3 VBG Total CO2 VBG O2 Saturation VBG Base Excess Hemoglobin 10.0 L 10.6 L Hematocrit 30.9 L 32.9 L Potassium 4.0 3.6 Glucose 147 H 125 H Ionized Calcium FiO2 Sodium Chloride Carbon Dioxide Anion Gap BUN Creatinine GFR Calculation BUN/Creatinine Ratio Calculated Osmolality Calcium Venous Ioniz Calcium Magnesium Total Bilirubin Direct Bilirubin AST ALT Alkaline Phosphatase Total Creatine Kinase 774 H D CK-MB (CK-2) 24.7 H D CK and CKMB Interp 3.2 Troponin I 26.200 H D Total Protein Albumin Globulin Albumin/Globulin Ratio Urine Color Urine Appearance Urine pH Ur Specific [place] Urine Protein Urine Glucose (UA) Urine Ketones Urine Blood Urine Nitrate Urine Bilirubin Urine Urobilinogen Urine Leukocytes Urine RBC Urine WBC Hyaline Casts Ur Culture Indicated? Blood Type Antibody Screen Crossmatch 01/25/17 01/25/17 01/25/17 00:18 01:34 04:26 WBC 10.0 RBC 3.63 L D Hgb 11.0 L D Hct 30.7 L MCV 84.6 L MCH 30 MCHC 35.8 RDW 14.1 Plt Count 144 MPV 10.3 Neut % (Auto) 86.5 H Lymph % (Auto) 8.1 L [place] % (Auto) 4.9 Eos % (Auto) 0.0 Baso % (Auto) 0.1 Neut # (Auto) 8.6 H Lymph # (Auto) 0.8 L [place] # (Auto) 0.5 Eos # (Auto) 0.0 Baso # (Auto) 0.0 Immature Gran % 0.4 Nucleated RBC % 0.0 Immature Gran # 0.04 Nucleated RBCs # 0.00 Immature Plt Fraction 0.0 INR PT Patient/Control Mix Circ Anticoag PTT Patient Temperature ABG pH 7.508 H 7.432 ABG pH at Pt Temp ABG pCO2 28.8 L 36.6 ABG pCO2 at Pt Temp ABG pO2 167.8 H 119.0 H ABG pO2 at Pt Temp ABG HCO3 22.4 24.8 ABG Total CO2 23.2 22.0 L ABG O2 Saturation 98.2 99.0 ABG Base Excess 0.1 0.4 ABG Sodium VBG pH VBG pCO2 VBG pO2 VBG HCO3 VBG Total CO2 VBG O2 Saturation VBG Base Excess Hemoglobin 10.9 L 10.4 L Hematocrit 32.0 L 32.2 L Potassium 3.9 3.7 Glucose 102 123 H Ionized Calcium FiO2 Sodium Chloride Carbon Dioxide Anion Gap BUN Creatinine GFR Calculation BUN/Creatinine Ratio Calculated Osmolality Calcium Venous Ioniz Calcium Magnesium Total Bilirubin Direct Bilirubin AST ALT Alkaline Phosphatase Total Creatine Kinase CK-MB (CK-2) CK and CKMB Interp Troponin I Total Protein Albumin Globulin Albumin/Globulin Ratio Urine Color Urine Appearance Urine pH Ur Specific [place] Urine Protein Urine Glucose (UA) Urine Ketones Urine Blood Urine Nitrate Urine Bilirubin Urine Urobilinogen Urine Leukocytes Urine RBC Urine WBC Hyaline Casts Ur Culture Indicated? Blood Type Antibody Screen Crossmatch 01/25/17 01/25/17 01/25/17 04:26 04:26 04:26 WBC RBC Hgb Hct MCV MCH MCHC RDW Plt Count MPV Neut % (Auto) Lymph % (Auto) [place] % (Auto) Eos % (Auto) Baso % (Auto) Neut # (Auto) Lymph # (Auto) [place] # (Auto) Eos # (Auto) Baso # (Auto) Immature Gran % Nucleated RBC % Immature Gran # Nucleated RBCs # Immature Plt Fraction INR PT Patient/Control Mix Circ Anticoag PTT Patient Temperature ABG pH 7.378 ABG pH at Pt Temp ABG pCO2 38.9 ABG pCO2 at Pt Temp ABG pO2 108.0 H ABG pO2 at Pt Temp ABG HCO3 22.8 ABG Total CO2 20.6 L ABG O2 Saturation 98.1 ABG Base Excess -2.0 ABG Sodium VBG pH VBG pCO2 VBG pO2 VBG HCO3 VBG Total CO2 VBG O2 Saturation VBG Base Excess Hemoglobin 11.1 L Hematocrit 34.3 L Potassium 4.0 3.8 Glucose 134 H 142 H Ionized Calcium FiO2 Sodium 140 Chloride 108 H Carbon Dioxide 24 Anion Gap 12.0 BUN 19 H Creatinine 1.00 GFR Calculation 93 BUN/Creatinine Ratio 19.00 Calculated Osmolality 282.4 Calcium 7.9 L Venous Ioniz Calcium Magnesium 2.2 Total Bilirubin 1.10 H Direct Bilirubin 0.30 H AST 62 H ALT 21 Alkaline Phosphatase 61 Total Creatine Kinase 783 H CK-MB (CK-2) 19.0 H D CK and CKMB Interp 2.4 Troponin I 18.500 H D Total Protein 5.3 L Albumin 3.2 L Globulin 2.1 L Albumin/Globulin Ratio 1.5 Urine Color Urine Appearance Urine pH Ur Specific [place] Urine Protein Urine Glucose (UA) Urine Ketones Urine Blood Urine Nitrate Urine Bilirubin Urine Urobilinogen Urine Leukocytes Urine RBC Urine WBC Hyaline Casts Ur Culture Indicated? Blood Type Antibody Screen Crossmatch 01/25/17 01/25/17 05:55 06:53 WBC RBC Hgb Hct MCV MCH MCHC RDW Plt Count MPV Neut % (Auto) Lymph % (Auto) [place] % (Auto) Eos % (Auto) Baso % (Auto) Neut # (Auto) Lymph # (Auto) [place] # (Auto) Eos # (Auto) Baso # (Auto) Immature Gran % Nucleated RBC % Immature Gran # Nucleated RBCs # Immature Plt Fraction INR PT Patient/Control Mix Circ Anticoag PTT Patient Temperature ABG pH 7.378 7.392 ABG pH at Pt Temp ABG pCO2 39.9 38.9 ABG pCO2 at Pt Temp ABG pO2 112.0 H 85.3 ABG pO2 at Pt Temp ABG HCO3 23.2 23.5 ABG Total CO2 21.3 L 21.4 L ABG O2 Saturation 98.9 96.7 ABG Base Excess -1.5 -1.0 ABG Sodium VBG pH VBG pCO2 VBG pO2 VBG HCO3 VBG Total CO2 VBG O2 Saturation VBG Base Excess Hemoglobin 10.4 L 10.4 L Hematocrit 32.1 L 32.1 L Potassium 4.3 4.3 Glucose 139 H 127 H Ionized Calcium FiO2 Sodium Chloride Carbon Dioxide Anion Gap BUN Creatinine GFR Calculation BUN/Creatinine Ratio Calculated Osmolality Calcium Venous Ioniz Calcium Magnesium Total Bilirubin Direct Bilirubin AST ALT Alkaline Phosphatase Total Creatine Kinase CK-MB (CK-2) CK and CKMB Interp Troponin I Total Protein Albumin Globulin Albumin/Globulin Ratio Urine Color Urine Appearance Urine pH Ur Specific [place] Urine Protein Urine Glucose (UA) Urine Ketones Urine Blood Urine Nitrate Urine Bilirubin Urine Urobilinogen Urine Leukocytes Urine RBC Urine WBC Hyaline Casts Ur Culture Indicated? Blood Type Antibody Screen Crossmatch Quality Measures - VTE Contraindication to Pharmacological VTE Prophylaxis: High Risk of Bleeding - Stroke Symptom Onset Unknown: No Specialty Discharge - Follow Up or Referrals
--- NOTE | 2017-01-25 08:44 | XRay Report ---
Exam: XR chest 1V portable Indication: Status post CABG, chest tube removal Comparison study: 01/24/2017 at 3:22 PM Findings: Cardiac silhouette and mediastinal contours appear similar to prior with improved aeration within the perihilar regions with clearing of interstitial opacities likely representing pulmonary edema changes. Median sternotomy wiring is again noted. The mediastinal drains have been removed. The right-sided [place]-Ruth catheter has been removed. Right-sided central venous catheter is in similar position. There is improved aeration within the lung bases. There is no definite pneumothorax or significant pleural effusion identified. Osseous structures otherwise appear stable from prior. Impression: Postsurgical changes with interval removal of chest drains. No definite pneumothorax. Clearing of perihilar opacities suggesting resolving pulmonary edema. PROCEDURE INTERPRETED AT [facility] DEPARTMENT OF RADIOLOGY Final Report Signed by: Basim Ruiz
[2017-01-25] MEDS ORDERED: sitaGLIPtin 100 MG TABLET PO SCH (09:00)
[2017-01-25] MEDS ORDERED: amLODIPine 10 MG TABLET PO SCH (09:00)
[2017-01-25] MEDS ORDERED: glipiZIDE 10 MG TABLET PO SCH (09:00)
[2017-01-25] MEDS: ASPIRIN EC 81 MG TABLET PO SCH (10:15)
[2017-01-25] MEDS: LISINOPRIL 20 MG TABLET PO SCH (10:15)
[2017-01-25] MEDS: TIMOLOL 0.5% OPH SOLN 5 ML BOTTLE BOTH EYES SCH (10:21)
[2017-01-25] MEDS: CHLORHEXIDINE 0.12% ORAL RINSE 60 ML BOTTLE SWISH/SPIT SCH ×2 (10:23→22:28)
--- NOTE | 2017-01-25 12:23 | Pathology Report from [facility] ---
[facility] ACCESSION # : [id number] PATIENT NAME : Adarsh Juárez ORDERING DR : MYLES RICKETTS MD CLINICAL HX: CAD - Aortic stenosis POST-OP DX: Same SPECIMEN INFO: Aortic valve tissue GROSS DESCRIPTION: The specimen is received in formalin labeled with the patients name and consists of an aggregate of partially calcified valve tissue measuring 4.5 x 2.0 cm. Torch [employer] sections submitted in one cassette following decalcification. DIAGNOSIS FOR ADARSH JUÁREZ: AORTIC VALVE TISSUE, REPLACEMENT: Degenerative changes with atherosclerosis and calcification. COLLECTED DATE: 01/24/2017 [facility] REPORT DATE: 01/25/2017 ELECTRONICALLY SIGNED BY: Arya Yap M.D. 01/25/2017 - 10:42:11 [facility]ITAL[facility]
--- NOTE | 2017-01-25 12:53 | Physician Query Form ---
CLICK EDIT DOCUMENT TO SELECT QUERY ANSWER --> OK --> SIGN Dina Marc RN, CCDS Certified Clinical Traveling Accountant W) [phone] (f) [phone] [email or web address] PROVIDERS: Make your selection(s) from the choices in EACH section by typing an "x" and enter comments in the comment section. Please use your independent medical judgment in providing your response. This request does not imply that any particular answer is desired or expected. CLINICAL INDICATORS: (Providers should not edit this section) The medical record indicates that the patient was admitted for heart surgery, HH dropped to 7.8/21.7 and the patient has been given 7 units of blood. Based on the above, could you clarify which of the following conditions you are evaluating, treating, and/or monitoring? ( ) Blood loss anemia ( ) acute ( ) chronic ( ) acute on chronic ( ) Acute blood loss anemia on baseline chronic anemia (x ) Acute blood loss anemia as a complication of a procedure ( ) Iron deficiency anemia not associated with blood loss ( ) Dilutional anemia due to IV fluids ( ) Anemia due to chemotherapy ( ) Anemia due to neoplastic disease ( ) Anemia due to chronic kidney disease ( ) Pernicious anemia ( ) Aplastic anemia ( ) Hemolytic anemia ( ) immune ( ) non-immune - please specify cause: ( ) Anemia due to other condition, please specify: ( ) Clinically unable to determine COMMENTS: PLEASE ALSO DOCUMENT RESPONSE IN PROGRESS NOTES AND/OR DISCHARGE SUMMARY Use of terms such as suspected, likely, or probable (associated with a specific diagnosis that is being evaluated, monitored, or treated as if it exists) are acceptable and can be restated in the discharge summary if not ruled out. MTDD
[2017-01-25] MEDS ORDERED: INSULIN REGULAR 100 UNIT/ML SUBCUT SCH (14:00)
[2017-01-25 14:19] LABS: CKMB % 1.3 %
[2017-01-25 14:20] LABS: Troponin I Only 11.3 NG/ML (0.00-0.045)
[2017-01-25] MEDS: INSULIN REGULAR 100 UNIT/ML SUBCUT SCH ×3 (16:24→23:58)
[2017-01-25] MEDS: SODIUM CHLORIDE 0.45% 1,000 ML IV SCH ×2 (16:25)
[2017-01-25] MEDS ORDERED: DEXTROSE 50% 25 GM/50 ML SYRINGE IV PRN (17:32)
--- NOTE | 2017-01-25 17:40 | Hospitalist Consult Note ---
Assessment and Plan (1) Status post aortic valve replacement Status: Acute Assessment and plan: Dr. Márquez managing Current Visit: Yes (2) S/P CABG x 2 Status: Acute Assessment and plan: Dr. Márquez managing, cont asa Current Visit: Yes (3) Hypertension Status: Acute Assessment and plan: change norvasc to 10 mg, added hydralazine, cont lisinopril Current Visit: Yes (4) Diabetes Status: Acute Assessment and plan: hgb a1c 6.9, lantus 15 units, increase glucotrol to 10 mg po bid, increase and restart metformin to 1000 mg po bid Current Visit: No (5) Hypothyroid Status: Acute Current Visit: No History of Present Illness - Data of Consult Consult date: 01/25/17 Requesting Physician: Partha Márquez - Consult Narrative Reason for consult: diabetes management History of present illness: Mr. Mendez is a 71 year old male with a history of diabetes, hypertension and hyperlipidemia who underwent an aortic valve replacement and a CABG with grafting 2. Patient received 4 units of packed red blood cells, 1 pack of platelets and 2 units of FFP. We were consulted for diabetes management. Hemoglobin A1c has not been ordered. Patient says he used to drink and smoke both of which he has quit. He takes Byetta, Metformin and glipizide for his blood sugars which keeps him well controlled. Blood sugars are running over 300. We will give him Lantus, increase his glyburide and increase his metformin. CC: Partha Márquez MD - Home Medications and Allergies Home Medications: Home Medications Medication Instructions Recorded Confirmed Type Aspirin [Ecotrin] 81 mg PO DAILY 10/21/14 01/23/17 History Exenatide [Byetta] 10 mcg SQ BID 10/21/14 01/23/17 History Latanoprost 0.005% Oph Soln 1 drop BOTH EYES BEDTIME 10/21/14 01/23/17 History [Xalatan 0.005% Oph Soln] Lisinopril [Zestril] 40 mg PO DAILY 10/21/14 01/23/17 History Simvastatin [Zocor] 40 mg PO BEDTIME 10/21/14 01/23/17 History Timolol 0.5% Oph Soln [Timoptic 1 drop BOTH EYES DAILY 10/21/14 01/23/17 History 0.5%] amLODIPine [Norvasc] 20 mg PO DAILY 10/21/14 01/23/17 History glipiZIDE [Glipizide] 10 mg PO DAILY 10/21/14 01/23/17 History metFORMIN [Glucophage] 850 mg PO BID W/MEALS 10/21/14 01/23/17 History Levothyroxine Tab [Synthroid Tab] 112 mcg PO DAILY@0700 01/13/17 01/23/17 History Saxagliptin HCl [Onglyza] 5 mg PO DAILY 01/13/17 01/23/17 History Allergies/Adverse Reactions: Allergies Allergy/AdvReac Type Severity Reaction Status Date / Time No Known Allergies Allergy Verified 01/14/17 06:58 Medical,Surgical,& Family Hx - Medical History Cardio: History of: Hypertension, Valvular Heart Disease (moderate aortic stenosis and mild mitral insufficiency), Cardiovascular Problems (HEART MURMUR SEES DR. 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) - Surgical History Cardiac Surgeries: Sugical HX of: Cardiac Catheterization Thoracic Surgeries: Patient denies;: Organ Transplant HEENT Surgeries: Surgical HX of: Eye Surgery (CATARACT RIGHT EYE) Abdominal Surgeries: Surgical HX of: Appendectomy Patient denies: Cholecystectomy, Colonoscopy, EGD Orthopedic Surgeries: Surgical HX of;: Orthopedic Surgery (amputation of right BKA, second left toe amputation) - Family History Family History: Reports;: Family Diabetes, Family Hypertension - Social History Smoking Status: Former smoker Frequency of Alcohol Use: None (Used to drink but quit) Type of Drug Use: None Marital Status: Lives With:: Spouse Functional capacity: independent ambulation - Constitutional Constitutional: Absent: fever(s), headache(s) - EENT Eyes: Absent: blurry vision, diplopia Ears: Absent: decreased hearing, ear discharge Nose, mouth and throat: Absent: headache(s), sore throat - Cardiovascular Cardiovascular: Present: dyspnea. Absent: chest pain at rest - Respiratory Respiratory: Present: dyspnea. Absent: cough - Gastrointestinal Gastrointestinal: Absent: constipation, diarrhea, nausea, vomiting - Genitourinary Genitourinary: Absent: difficulty urinating, dysuria - Neurological Neurological: Absent: confusion, headache(s), syncope - Psychiatric Psychiatric: Absent: anxiety, depression - Endocrine Endocrine: Present: fatigue, polydipsia, polyphagia, polyuria - Hematologic/Lymphatic Hematologic/Lymphatic: Absent: easy bleeding, easy bruising Exam - Constitutional Vitals: Period Temp Pulse Resp BP Sys/Padron Pulse Ox Last 24 Hr 97.2 F-99.9 F 59-80 8-19 102-152/47-82 92-100 General appearance: no acute distress, over weight - Head Head exam: Present: normal inspection, normocephalic - Eye Eye exam: Present: EOMI. Absent: scleral icterus Pupils: Present: NATHANIEL, normal accommodation - ENT ENT exam: Present: normal exam, normal external ear exam - Neck Neck exam: Absent: lymphadenopathy, thyromegaly - Respiratory Respiratory exam: Present: clear to auscultation bilaterally, decreased breath sounds. Absent: rhonchi, wheezes - Cardiovascular Cardiovascular exam: Present: regular rate and rhythm, systolic murmur - GI/Abdominal GI/Abdominal exam: Present: normal bowel sounds, soft. Absent: tenderness - Extremities Exam Extremities exam: Present: normal inspection (Right below the knee amputation), normal capillary refill Results - Labs CBC & BMP: 01/25/17 04:26 01/25/17 04:26 Lab Results: I have reviewed the past 24 hour labs - Diagnostic Findings Procedure: Chest x-ray: report reviewed by me (Pulmonary edema) Quality Measures - VTE Contraindication to Pharmacological VTE Prophylaxis: High Risk of Bleeding - Stroke Symptom Onset Unknown: No Specialty Discharge - Follow Up or Referrals
[2017-01-25] MEDS: metFORMIN 500 MG TABLET PO SCH (17:41)
[2017-01-25] MEDS: SIMVASTATIN 40 MG TABLET PO SCH (22:25)
[2017-01-25] MEDS: glipiZIDE 10 MG TABLET PO SCH (22:25)
[2017-01-25] MEDS: hydrALAZINE 25 MG TABLET PO SCH (22:27)
[2017-01-25] MEDS: LATANOPROST 0.005% OPH SOLN 2.5 ML BOTTLE BOTH EYES SCH (22:40)
[2017-01-26] MEDS: INSULIN REGULAR 100 UNIT/ML SUBCUT SCH ×5 (03:25→21:18)
[2017-01-26 04:16] LABS: Hematocrit 26.6 VOL% (42.0-52.0); Hemoglobin 9.4 GM/DL (14.0-18.0); Immature Granulocytes % 0.4 %; Immature Granulocytes Absolute 0.04 #; Lymphocytes # 0.7 10*3/uL (1.4-4.0); Lymphocytes % 6.6 % (21.2-54.2); Mean Corpuscular HGB Conc 35.3 GM/DL (32-36); Mean Corpuscular Hemoglobin 30 PG (27-34); Mean Corpuscular Volume 85.5 FL (87-102); Mean Platelet Volume 9.9 FL (9.6-12.0); Monocytes % 9.1 % (1.7-12.7); Neutrophils % 83.9 % (38.7-73.9); Platelet Count 115 T/CUMM (130-400); Red Blood Count 3.11 MC/CUMM (3.8-5.5); Red Cell Distribution Width 14.4 % (9.3-17.3); White Blood Count 10.7 T/CUMM (4-12)
[2017-01-26 04:59] LABS: Albumin 2.9 G/DL (3.4-5.0); Bilirubin,Direct 0.1 MG/DL (0.0-0.20); Bilirubin,Total 0.5 MG/DL (0.2-1.0); Calcium 7.6 MG/DL (8.5-10.1); Magnesium 2.4 MG/DL (1.8-2.4); Osmolality,Calculated 285.3 MOS/KG (273-304); Potassium 4.1 MMOL/L (3.5-5.1); Total Protein 5.1 G/DL (6.4-8.3)
--- NOTE | 2017-01-26 06:10 | Cardiothoracic Progress Note ---
Cardiothoracic Subjective Interval history: Appreciate Dr. John's help. Patient is awake and alert and extubated this morning. Vital signs have been stable through the night and he is breathing comfortably this morning. O2 sats are in the high 90s. Patient remains in sinus rhythm. Creatinine is normal and urine output is satisfactory. Think he can be transferred to telemetry later this morning. Exam (Progress Note) - Constitutional Vitals: Period Temp Pulse Resp BP Sys/Padron Pulse Ox Last 24 Hr 97.1 F-98.7 F 60-76 10-20 117-144/47-82 92-99 Result/EKG - Labs CBC & BMP: 01/26/17 04:10 01/26/17 04:00 Labs: Laboratory Results - last 24 hr 01/25/17 01/25/17 01/25/17 04:26 06:53 11:10 WBC RBC Hgb Hct MCV MCH MCHC RDW Plt Count MPV Neut % (Auto) Lymph % (Auto) [place] % (Auto) Eos % (Auto) Baso % (Auto) Neut # (Auto) Lymph # (Auto) [place] # (Auto) Eos # (Auto) Baso # (Auto) Immature Gran % Nucleated RBC % Immature Gran # Nucleated RBCs # Immature Plt Fraction ABG pH 7.392 ABG pCO2 38.9 ABG pO2 85.3 ABG HCO3 23.5 ABG Total CO2 21.4 L ABG O2 Saturation 96.7 ABG Base Excess -1.0 Hemoglobin 10.4 L Hematocrit 32.1 L Potassium 4.3 Glucose 127 H Sodium Chloride Carbon Dioxide Anion Gap BUN Creatinine GFR Calculation BUN/Creatinine Ratio POC Glucose 285 H Hemoglobin A1c 6.9 H Calculated Osmolality Calcium Magnesium Total Bilirubin Direct Bilirubin AST ALT Alkaline Phosphatase Total Creatine Kinase CK-MB (CK-2) CK and CKMB Interp Troponin I Total Protein Albumin Globulin Albumin/Globulin Ratio 01/25/17 01/25/17 01/25/17 13:37 15:46 20:55 WBC RBC Hgb Hct MCV MCH MCHC RDW Plt Count MPV Neut % (Auto) Lymph % (Auto) [place] % (Auto) Eos % (Auto) Baso % (Auto) Neut # (Auto) Lymph # (Auto) [place] # (Auto) Eos # (Auto) Baso # (Auto) Immature Gran % Nucleated RBC % Immature Gran # Nucleated RBCs # Immature Plt Fraction ABG pH ABG pCO2 ABG pO2 ABG HCO3 ABG Total CO2 ABG O2 Saturation ABG Base Excess Hemoglobin Hematocrit Potassium Glucose Sodium Chloride Carbon Dioxide Anion Gap BUN Creatinine GFR Calculation BUN/Creatinine Ratio POC Glucose 349 H 287 H Hemoglobin A1c Calculated Osmolality Calcium Magnesium Total Bilirubin Direct Bilirubin AST ALT Alkaline Phosphatase Total Creatine Kinase 1243 H D CK-MB (CK-2) 16.2 H CK and CKMB Interp 1.3 Troponin I 11.300 H D Total Protein Albumin Globulin Albumin/Globulin Ratio 01/25/17 01/26/17 01/26/17 23:27 03:21 04:00 WBC RBC Hgb Hct MCV MCH MCHC RDW Plt Count MPV Neut % (Auto) Lymph % (Auto) [place] % (Auto) Eos % (Auto) Baso % (Auto) Neut # (Auto) Lymph # (Auto) [place] # (Auto) Eos # (Auto) Baso # (Auto) Immature Gran % Nucleated RBC % Immature Gran # Nucleated RBCs # Immature Plt Fraction ABG pH ABG pCO2 ABG pO2 ABG HCO3 ABG Total CO2 ABG O2 Saturation ABG Base Excess Hemoglobin Hematocrit Potassium 4.1 Glucose 96 Sodium 141 Chloride 107 Carbon Dioxide 27 Anion Gap 11.1 BUN 27 H Creatinine 1.00 GFR Calculation 94 BUN/Creatinine Ratio 27.00 H POC Glucose 198 H 112 H Hemoglobin A1c Calculated Osmolality 285.3 Calcium 7.6 L Magnesium 2.4 Total Bilirubin 0.50 Direct Bilirubin 0.10 AST 52 H ALT 26 Alkaline Phosphatase 65 Total Creatine Kinase CK-MB (CK-2) CK and CKMB Interp Troponin I Total Protein 5.1 L Albumin 2.9 L Globulin 2.2 L Albumin/Globulin Ratio 1.3 01/26/17 04:10 WBC 10.7 RBC 3.11 L Hgb 9.4 L Hct 26.6 L MCV 85.5 L MCH 30 MCHC 35.3 RDW 14.4 Plt Count 115 L D MPV 9.9 Neut % (Auto) 83.9 H Lymph % (Auto) 6.6 L [place] % (Auto) 9.1 Eos % (Auto) 0.0 Baso % (Auto) 0.0 Neut # (Auto) 9.0 H Lymph # (Auto) 0.7 L [place] # (Auto) 1.0 H Eos # (Auto) 0.0 Baso # (Auto) 0.0 Immature Gran % 0.4 Nucleated RBC % 0.0 Immature Gran # 0.04 Nucleated RBCs # 0.00 Immature Plt Fraction 0.0 ABG pH ABG pCO2 ABG pO2 ABG HCO3 ABG Total CO2 ABG O2 Saturation ABG Base Excess Hemoglobin Hematocrit Potassium Glucose Sodium Chloride Carbon Dioxide Anion Gap BUN Creatinine GFR Calculation BUN/Creatinine Ratio POC Glucose Hemoglobin A1c Calculated Osmolality Calcium Magnesium Total Bilirubin Direct Bilirubin AST ALT Alkaline Phosphatase Total Creatine Kinase CK-MB (CK-2) CK and CKMB Interp Troponin I Total Protein Albumin Globulin Albumin/Globulin Ratio Quality Measures - VTE Contraindication to Pharmacological VTE Prophylaxis: High Risk of Bleeding - Stroke Symptom Onset Unknown: No Specialty Discharge - Follow Up or Referrals
[2017-01-26] MEDS: LEVOTHYROXINE 112 MCG TABLET PO SCH (06:36)
[2017-01-26] MEDS ORDERED: ALUMINUM/MAGNES/SIMETH MAX STR 30 ML UDCUP PO PRN (08:22)
[2017-01-26] MEDS ORDERED: DEXTROSE 50% 25 GM/50 ML SYRINGE IV PRN ×2 (08:22)
[2017-01-26] MEDS ORDERED: ZALEPLON 5 MG CAPSULE PO PRN (08:22)
[2017-01-26] MEDS ORDERED: ONDANSETRON 4 MG/2 ML VIAL IV PRN (08:22)
[2017-01-26] MEDS ORDERED: MAGNESIUM SULF RIDER 4 GM in PREMIX 1 EACH IV PRN (08:22)
[2017-01-26] MEDS ORDERED: ACETAMINOPHEN 325 MG TABLET PO PRN (08:22)
[2017-01-26] MEDS ORDERED: MAGNESIUM SULF RIDER 2 GM in PREMIX 1 EACH IV PRN (08:22)
[2017-01-26] MEDS ORDERED: oxyCODONE/ACETAMINOPHEN 5-325 MG TABLET PO PRN (08:22)
[2017-01-26] MEDS ORDERED: MAGNESIUM HYDROXIDE SUSP 30 ML UDCUP PO PRN (08:22)
[2017-01-26] MEDS ORDERED: MORPHINE 2 MG/1 ML SYRINGE IV PRN (08:22)
[2017-01-26] MEDS ORDERED: GLUCAGON 1 MG VIAL IM PRN ×2 (08:22)
--- NOTE | 2017-01-26 08:32 | XRay Report ---
XR chest 1V portable Indication: Post chest tube removal, look for pneumothorax Comparison: Chest x-ray dated January 25, 2017 Technique: Single frontal view of the chest. Findings: Continued mild cardiomegaly status post sternotomy. Right-sided central venous catheter tip appears grossly unchanged. Redemonstration of mild right infrahilar atelectasis/consolidation. Visualized osseous and surrounding soft tissue structures appear grossly unchanged. IMPRESSION: No adverse interval change. PROCEDURE INTERPRETED AT [facility] DEPARTMENT OF RADIOLOGY Final Report Signed by: Dr Nabeel Kong
[2017-01-26] MEDS ORDERED: ASPIRIN EC 325 MG TABLET PO SCH (09:00)
[2017-01-26] MEDS: metFORMIN 500 MG TABLET PO SCH ×2 (09:17→16:50)
[2017-01-26] MEDS: KETOROLAC 30 MG/1 ML VIAL IV SCH ×3 (09:18→21:19)
[2017-01-26] MEDS: SODIUM CHLOR 0.45% KCL 20 MEQ 20 MEQ/1,000 ML BAG IV SCH (09:18)
[2017-01-26] MEDS: FERROUS SULFATE 325 MG TABLET PO SCH (09:19)
[2017-01-26] MEDS: DOCUSATE SODIUM 100 MG CAPSULE PO SCH (09:19)
[2017-01-26] MEDS: glipiZIDE 10 MG TABLET PO SCH ×2 (09:19→21:17)
[2017-01-26] MEDS: hydrALAZINE 25 MG TABLET PO SCH ×3 (09:19→21:18)
[2017-01-26] MEDS: ASPIRIN EC 81 MG TABLET PO SCH (09:19)
[2017-01-26] MEDS: PANTOPRAZOLE 40 MG TABLET PO SCH (09:20)
[2017-01-26] MEDS: LISINOPRIL 20 MG TABLET PO SCH (09:20)
[2017-01-26] MEDS: INSULIN GLARGINE 100 UNIT/ML SUBCUT SCH (09:20)
[2017-01-26] MEDS: amLODIPine 10 MG TABLET PO SCH (09:20)
[2017-01-26] MEDS: CHLORHEXIDINE 0.12% ORAL RINSE 60 ML BOTTLE SWISH/SPIT SCH ×2 (09:21→21:18)
[2017-01-26] MEDS: TIMOLOL 0.5% OPH SOLN 5 ML BOTTLE BOTH EYES SCH (09:21)
[2017-01-26] MEDS: POTASSIUM CHLORIDE 20 MEQ TABLET PO PRN (10:44)
--- NOTE | 2017-01-26 15:27 | Hospitalist Progress Note ---
Assessment and Plan - Time spent with patient Time spent with patient: Greater than 30 minutes (1) Type 2 diabetes mellitus Status: Acute Assessment and plan: 01/26/2017: Improving postoperative glucose control. Target glucose 150 mg percent with range of 25 up or down. Hemoglobin A1c 6.9% measured 01/25/17. Patient is receiving max oral dose Glucotrol , metformin 1000 mg twice daily , with Lantus 15 units subcu every morning. He also receives regular insulin every 4 hours sliding scale protocol. Current Visit: Yes (2) Essential hypertension Status: Chronic Assessment and plan: 01/26/2017: Good blood pressure and pulse rate control. Patient is receiving Norvasc 10 mg p.o. with lisinopril 40 mg p.o. daily, and hydralazine 25 mg 3 times daily. Current Visit: Yes (3) Hypothyroidism Status: Chronic Assessment and plan: 01/26/2017: Patient receives 112 mcg daily Synthroid dose. Check serum TSH and free T4 levels. Titrate Synthroid dose accordingly. Current Visit: Yes (4) Thrombocytopenia Status: Acute Assessment and plan: 01/26/2017: Today's platelet count measures 115,000. Patient is not receiving heparin products or other medications known to cause thrombocytopenia. Continue monitoring daily CBC Current Visit: Yes (5) Dyslipidemia Status: Chronic Assessment and plan: 01/26/2017: Patient is receiving Zocor 40 mg p.o. q. evening. Check fasting lipid panel in a.m. Current Visit: Yes (6) S/P CABG x 2 Status: Acute Assessment and plan: 01/26/2017 : Plus bio prosthetic aortic valve replacement 2 days ago. 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 Walks with a prosthesis. Gait assessment for strengthening and stability. Current Visit: Yes Hospitalist: Subjective Interval history: 01/26/2017: Patient is a 71-year-old that is now 3 days status post 2 vessel CABG and aortic valve replacement. Hospitalist service consulted for general medical postop management including hypertension, type 2 diabetes. Exam - Constitutional Vitals: Period Temp Pulse Resp BP Sys/Padron Pulse Ox Last 24 Hr 97.1 F-98.2 F 64-74 10-22 116-165/55-74 95-97 General appearance: over weight - Head Head exam: Present: normal inspection - Neck Neck exam: Absent: meningismus, tenderness - Respiratory Respiratory exam: Present: clear to auscultation bilaterally. Absent: rhonchi, wheezes - Cardiovascular Cardiovascular exam: Present: regular rate and rhythm - GI/Abdominal GI/Abdominal exam: Present: normal bowel sounds, distended, soft. Absent: tenderness, rebound - Extremities Exam Extremities exam: Present: other (Healed right BKA stump since 1997. Has a prosthetic lower leg for ambulation) - Back Exam Back exam: Absent: CVA tenderness (L), CVA tenderness (R) - Neurological Exam Neurological exam: Present: alert, oriented X3 - Psychiatric Psychiatric exam: Present: normal affect - Skin Skin exam: Present: normal color, warm, rash Results - Labs CBC & BMP: 01/26/17 04:10 01/26/17 04:00 Quality Measures - VTE Contraindication to Pharmacological VTE Prophylaxis: High Risk of Bleeding - Stroke Symptom Onset Unknown: No Specialty Discharge - Follow Up or Referrals
[2017-01-26] MEDS: SIMVASTATIN 40 MG TABLET PO SCH (21:18)
[2017-01-26] MEDS: LATANOPROST 0.005% OPH SOLN 2.5 ML BOTTLE BOTH EYES SCH (21:18)
[2017-01-27] MEDS: INSULIN REGULAR 100 UNIT/ML SUBCUT SCH ×6 (01:25→21:07)
[2017-01-27] MEDS: KETOROLAC 30 MG/1 ML VIAL IV SCH ×4 (02:57→21:10)
[2017-01-27 05:59] LABS: Basophils % 0.1 % (0.0-0.8); Eosinophils # 0.1 10*3/uL (0.0-0.87); Eosinophils % 0.6 % (0.00-10.9); Hematocrit 26.5 VOL% (42.0-52.0); Hemoglobin 9.1 GM/DL (14.0-18.0); Immature Granulocytes % 0.5 %; Immature Granulocytes Absolute 0.04 #; Lymphocytes # 1.3 10*3/uL (1.4-4.0); Lymphocytes % 16.8 % (21.2-54.2); Mean Corpuscular HGB Conc 34.3 GM/DL (32-36); Mean Corpuscular Hemoglobin 30 PG (27-34); Mean Corpuscular Volume 87.5 FL (87-102); Mean Platelet Volume 10.4 FL (9.6-12.0); Monocytes # 0.7 10*3/uL (0.11-0.8); Monocytes % 8.5 % (1.7-12.7); NRBC # 0.03 10*3/uL; Neutrophils # 5.7 10*3/uL (1.4-7.4); Neutrophils % 73.5 % (38.7-73.9); Platelet Count 120 T/CUMM (130-400); Red Blood Count 3.03 MC/CUMM (3.8-5.5); Red Cell Distribution Width 14.6 % (9.3-17.3); White Blood Count 7.7 T/CUMM (4-12)
[2017-01-27] MEDS ORDERED: FUROSEMIDE 40 MG/4 ML VIAL IV ONE (06:00)
--- NOTE | 2017-01-27 06:18 | Cardiothoracic Progress Note ---
Cardiothoracic Subjective Interval history: Patient has been moved to telemetry. He is awake and alert his vital signs have been stable and he is breathing comfortably. We will try and gradually increase his activity as tolerated today according to routine postoperative protocol but overall his progress appears satisfactory. Exam (Progress Note) - Constitutional Vitals: Period Temp Pulse Resp BP Sys/Padron Pulse Ox Last 24 Hr 97.0 F-98.3 F 68-76 12-22 109-161/53-68 94-98 Result/EKG - Labs CBC & BMP: 01/27/17 05:45 01/26/17 04:00 Labs: Laboratory Results - last 24 hr 01/23/17 01/24/17 01/24/17 10:39 19:09 21:14 WBC RBC Hgb Hct MCV MCH MCHC RDW Plt Count MPV Neut % (Auto) Lymph % (Auto) [place] % (Auto) Eos % (Auto) Baso % (Auto) Neut # (Auto) Lymph # (Auto) [place] # (Auto) Eos # (Auto) Baso # (Auto) Immature Gran % Nucleated RBC % Immature Gran # Nucleated RBCs # Immature Plt Fraction POC Glucose 159 H 136 H Crossmatch See Detail 01/24/17 01/25/17 01/25/17 23:39 01:27 02:32 WBC RBC Hgb Hct MCV MCH MCHC RDW Plt Count MPV Neut % (Auto) Lymph % (Auto) [place] % (Auto) Eos % (Auto) Baso % (Auto) Neut # (Auto) Lymph # (Auto) [place] # (Auto) Eos # (Auto) Baso # (Auto) Immature Gran % Nucleated RBC % Immature Gran # Nucleated RBCs # Immature Plt Fraction POC Glucose 105 110 H 129 H Crossmatch 01/25/17 01/25/17 01/25/17 03:19 05:18 07:11 WBC RBC Hgb Hct MCV MCH MCHC RDW Plt Count MPV Neut % (Auto) Lymph % (Auto) [place] % (Auto) Eos % (Auto) Baso % (Auto) Neut # (Auto) Lymph # (Auto) [place] # (Auto) Eos # (Auto) Baso # (Auto) Immature Gran % Nucleated RBC % Immature Gran # Nucleated RBCs # Immature Plt Fraction POC Glucose 119 H 141 H 125 H Crossmatch 01/26/17 01/26/17 01/26/17 07:35 12:27 16:26 WBC RBC Hgb Hct MCV MCH MCHC RDW Plt Count MPV Neut % (Auto) Lymph % (Auto) [place] % (Auto) Eos % (Auto) Baso % (Auto) Neut # (Auto) Lymph # (Auto) [place] # (Auto) Eos # (Auto) Baso # (Auto) Immature Gran % Nucleated RBC % Immature Gran # Nucleated RBCs # Immature Plt Fraction POC Glucose 121 H 202 H 122 H Crossmatch 01/26/17 01/27/17 20:00 05:45 WBC 7.7 RBC 3.03 L Hgb 9.1 L Hct 26.5 L MCV 87.5 MCH 30 MCHC 34.3 RDW 14.6 Plt Count 120 L MPV 10.4 Neut % (Auto) 73.5 Lymph % (Auto) 16.8 L [place] % (Auto) 8.5 Eos % (Auto) 0.6 Baso % (Auto) 0.1 Neut # (Auto) 5.7 Lymph # (Auto) 1.3 L [place] # (Auto) 0.7 Eos # (Auto) 0.1 Baso # (Auto) 0.0 Immature Gran % 0.5 Nucleated RBC % 0.4 Immature Gran # 0.04 Nucleated RBCs # 0.03 Immature Plt Fraction 0.0 POC Glucose 237 H Crossmatch Quality Measures - VTE Contraindication to Pharmacological VTE Prophylaxis: High Risk of Bleeding - Stroke Symptom Onset Unknown: No Specialty Discharge - Follow Up or Referrals
[2017-01-27] MEDS: LEVOTHYROXINE 112 MCG TABLET PO SCH (06:23)
[2017-01-27 06:31] LABS: Alanine Aminotransferase 24 U/L (16-61); Albumin 2.8 G/DL (3.4-5.0); Alkaline Phosphatase 78 U/L (45-117); Aspartate Amino Transferase 38 U/L (0-37); Bilirubin,Indirect 0.7 MG/DL (0.0-1.0); Blood Urea Nitrogen 28 MG/DL (7-18); Calcium 7.5 MG/DL (8.5-10.1); Glucose 94 MG/DL (74-106); Magnesium 2.4 MG/DL (1.8-2.4); Osmolality,Calculated 286.3 MOS/KG (273-304); Potassium 3.9 MMOL/L (3.5-5.1); Risk Ratio 3.34; Sodium 141 MMOL/L (136-145); VLDL CHOLESTEROL 26.6 MG/DL
[2017-01-27 06:34] LABS: Free T4 (Free Thyroxine) 1.6 NG/DL (0.76-1.46); Thyroid Stimulating Hormone 1.78 uIU/ml (0.358-3.74)
--- NOTE | 2017-01-27 07:24 | XRay Report ---
XR chest 1V portable Indication: Shortness of breath. Chest one view: Comparison yesterday shows stable central line, median sternotomy wires, and normal heart size. Lung volumes have decreased with progressive atelectasis. No new infiltrates are identified. Impression: Worsening pulmonary hypoinflation. PROCEDURE INTERPRETED AT [facility] DEPARTMENT OF RADIOLOGY Final Report Signed by: Williams Kwon M.D.
[2017-01-27] MEDS: CHLORHEXIDINE 0.12% ORAL RINSE 60 ML BOTTLE SWISH/SPIT SCH ×2 (08:32→21:07)
[2017-01-27] MEDS: INSULIN GLARGINE 100 UNIT/ML SUBCUT SCH (08:33)
[2017-01-27] MEDS: TIMOLOL 0.5% OPH SOLN 5 ML BOTTLE BOTH EYES SCH (08:33)
[2017-01-27] MEDS: DOCUSATE SODIUM 100 MG CAPSULE PO SCH (08:34)
[2017-01-27] MEDS: LISINOPRIL 20 MG TABLET PO SCH (08:34)
[2017-01-27] MEDS: ASPIRIN EC 81 MG TABLET PO SCH (08:34)
[2017-01-27] MEDS: hydrALAZINE 25 MG TABLET PO SCH ×3 (08:34→21:07)
[2017-01-27] MEDS: glipiZIDE 10 MG TABLET PO SCH ×2 (08:34→21:07)
[2017-01-27] MEDS: PANTOPRAZOLE 40 MG TABLET PO SCH (08:35)
[2017-01-27] MEDS: metFORMIN 500 MG TABLET PO SCH ×2 (08:35→17:00)
[2017-01-27] MEDS: FERROUS SULFATE 325 MG TABLET PO SCH (08:35)
[2017-01-27] MEDS: amLODIPine 10 MG TABLET PO SCH (08:35)
[2017-01-27] MEDS: POTASSIUM CHLORIDE 20 MEQ TABLET PO PRN ×2 (08:41→14:05)
[2017-01-27] MEDS: SODIUM CHLOR 0.45% KCL 20 MEQ 20 MEQ/1,000 ML BAG IV SCH (09:05)
[2017-01-27] MEDS: SIMVASTATIN 40 MG TABLET PO SCH (21:07)
[2017-01-27] MEDS: LATANOPROST 0.005% OPH SOLN 2.5 ML BOTTLE BOTH EYES SCH (21:10)
[2017-01-28] MEDS: KETOROLAC 30 MG/1 ML VIAL IV SCH (03:15)
[2017-01-28] MEDS: INSULIN REGULAR 100 UNIT/ML SUBCUT SCH ×6 (03:15→21:03)
[2017-01-28 05:55] LABS: Basophils % 0.2 % (0.0-0.8); Eosinophils # 0.1 10*3/uL (0.0-0.87); Hematocrit 25.9 VOL% (42.0-52.0); Hemoglobin 8.9 GM/DL (14.0-18.0); Immature Granulocytes % 0.8 %; Immature Granulocytes Absolute 0.05 #; Lymphocytes # 1.2 10*3/uL (1.4-4.0); Lymphocytes % 19.6 % (21.2-54.2); Mean Corpuscular HGB Conc 34.4 GM/DL (32-36); Mean Corpuscular Hemoglobin 30 PG (27-34); Mean Corpuscular Volume 87.8 FL (87-102); Mean Platelet Volume 10.9 FL (9.6-12.0); Monocytes # 0.6 10*3/uL (0.11-0.8); Monocytes % 9.7 % (1.7-12.7); NRBC # 0.02 10*3/uL; Neutrophils % 67.7 % (38.7-73.9); Platelet Count 139 T/CUMM (130-400); Red Blood Count 2.95 MC/CUMM (3.8-5.5); Red Cell Distribution Width 14.4 % (9.3-17.3)
[2017-01-28] MEDS: LEVOTHYROXINE 112 MCG TABLET PO SCH (06:00)
--- NOTE | 2017-01-28 06:23 | Cardiothoracic Progress Note ---
Cardiothoracic Subjective Interval history: Patient looks and feels okay this morning. Vital signs have been stable and is breathing comfortably. his hematocrit this morning is 25% but that is essentially stable. We will try to avoid any further transfusion if possible. He is increasing his activity and is able to ambulate with minimal assistance. Overall his progress appears satisfactory. Exam (Progress Note) - Constitutional Vitals: Period Temp Pulse Resp BP Sys/Padron Pulse Ox Last 24 Hr 97.5 F-98.7 F 66-77 16-20 110-143/45-67 94-98 Result/EKG - Labs CBC & BMP: 01/28/17 04:22 01/27/17 05:45 Labs: Laboratory Results - last 24 hr 01/27/17 01/27/17 01/27/17 05:45 05:45 05:45 WBC RBC Hgb Hct MCV MCH MCHC RDW Plt Count MPV Neut % (Auto) Lymph % (Auto) [place] % (Auto) Eos % (Auto) Baso % (Auto) Neut # (Auto) Lymph # (Auto) [place] # (Auto) Eos # (Auto) Baso # (Auto) Immature Gran % Nucleated RBC % Immature Gran # Nucleated RBCs # Immature Plt Fraction Sodium 141 Potassium 3.9 Chloride 108 H Carbon Dioxide 27 Anion Gap 9.9 BUN 28 H Creatinine 0.90 GFR Calculation 105 BUN/Creatinine Ratio 31.00 H Glucose 94 POC Glucose Calculated Osmolality 286.3 Calcium 7.5 L Magnesium 2.4 Total Bilirubin 0.90 Direct Bilirubin 0.20 Indirect Bilirubin 0.7 AST 38 H ALT 24 Alkaline Phosphatase 78 Total Creatine Kinase 623 H D CK-MB (CK-2) 2.5 D Troponin I 4.130 H D Total Protein 5.0 L Albumin 2.8 L Globulin 2.2 L Albumin/Globulin Ratio 1.2 Triglycerides 133 Cholesterol 107 LDL Cholesterol 58.0 VLDL Cholesterol 26.6 HDL Cholesterol 32 L Heart Disease Risk Ratio 3.34 Free T4 1.60 H TSH 3rd Generation 1.780 01/27/17 01/27/17 01/27/17 08:02 11:42 15:58 WBC RBC Hgb Hct MCV MCH MCHC RDW Plt Count MPV Neut % (Auto) Lymph % (Auto) [place] % (Auto) Eos % (Auto) Baso % (Auto) Neut # (Auto) Lymph # (Auto) [place] # (Auto) Eos # (Auto) Baso # (Auto) Immature Gran % Nucleated RBC % Immature Gran # Nucleated RBCs # Immature Plt Fraction Sodium Potassium Chloride Carbon Dioxide Anion Gap BUN Creatinine GFR Calculation BUN/Creatinine Ratio Glucose POC Glucose 113 H 150 H 138 H Calculated Osmolality Calcium Magnesium Total Bilirubin Direct Bilirubin Indirect Bilirubin AST ALT Alkaline Phosphatase Total Creatine Kinase CK-MB (CK-2) Troponin I Total Protein Albumin Globulin Albumin/Globulin Ratio Triglycerides Cholesterol LDL Cholesterol VLDL Cholesterol HDL Cholesterol Heart Disease Risk Ratio Free T4 TSH 3rd Generation 01/27/17 01/28/17 19:25 04:22 WBC 6.0 RBC 2.95 L Hgb 8.9 L Hct 25.9 L MCV 87.8 MCH 30 MCHC 34.4 RDW 14.4 Plt Count 139 MPV 10.9 Neut % (Auto) 67.7 Lymph % (Auto) 19.6 L [place] % (Auto) 9.7 Eos % (Auto) 2.0 Baso % (Auto) 0.2 Neut # (Auto) 4.0 Lymph # (Auto) 1.2 L [place] # (Auto) 0.6 Eos # (Auto) 0.1 Baso # (Auto) 0.0 Immature Gran % 0.8 Nucleated RBC % 0.3 Immature Gran # 0.05 Nucleated RBCs # 0.02 Immature Plt Fraction 0.0 Sodium Potassium Chloride Carbon Dioxide Anion Gap BUN Creatinine GFR Calculation BUN/Creatinine Ratio Glucose POC Glucose 184 H Calculated Osmolality Calcium Magnesium Total Bilirubin Direct Bilirubin Indirect Bilirubin AST ALT Alkaline Phosphatase Total Creatine Kinase CK-MB (CK-2) Troponin I Total Protein Albumin Globulin Albumin/Globulin Ratio Triglycerides Cholesterol LDL Cholesterol VLDL Cholesterol HDL Cholesterol Heart Disease Risk Ratio Free T4 TSH 3rd Generation Quality Measures - VTE Contraindication to Pharmacological VTE Prophylaxis: High Risk of Bleeding - Stroke Symptom Onset Unknown: No Specialty Discharge - Follow Up or Referrals
[2017-01-28 06:25] LABS: Alanine Aminotransferase 25 U/L (16-61); Albumin 2.8 G/DL (3.4-5.0); Alkaline Phosphatase 100 U/L (45-117); Aspartate Amino Transferase 32 U/L (0-37); Bilirubin,Indirect 0.6 MG/DL (0.0-1.0); Blood Urea Nitrogen 23 MG/DL (7-18); Calcium 7.5 MG/DL (8.5-10.1); Glucose 87 MG/DL (74-106); Magnesium 2.2 MG/DL (1.8-2.4); Osmolality,Calculated 281.4 MOS/KG (273-304); Sodium 140 MMOL/L (136-145); Total Protein 5.2 G/DL (6.4-8.3)
[2017-01-28] MEDS: FERROUS SULFATE 325 MG TABLET PO SCH (09:00)
[2017-01-28] MEDS: hydrALAZINE 25 MG TABLET PO SCH ×3 (09:01→21:02)
[2017-01-28] MEDS: LISINOPRIL 20 MG TABLET PO SCH (09:01)
[2017-01-28] MEDS: glipiZIDE 10 MG TABLET PO SCH ×2 (09:01→21:03)
[2017-01-28] MEDS: metFORMIN 500 MG TABLET PO SCH ×2 (09:01→18:12)
[2017-01-28] MEDS: amLODIPine 10 MG TABLET PO SCH (09:02)
[2017-01-28] MEDS: DOCUSATE SODIUM 100 MG CAPSULE PO SCH (09:02)
[2017-01-28] MEDS: CHLORHEXIDINE 0.12% ORAL RINSE 60 ML BOTTLE SWISH/SPIT SCH ×2 (09:02→21:03)
[2017-01-28] MEDS: PANTOPRAZOLE 40 MG TABLET PO SCH (09:02)
[2017-01-28] MEDS: INSULIN GLARGINE 100 UNIT/ML SUBCUT SCH (09:02)
[2017-01-28] MEDS: ASPIRIN EC 81 MG TABLET PO SCH (09:02)
[2017-01-28] MEDS: TIMOLOL 0.5% OPH SOLN 5 ML BOTTLE BOTH EYES SCH (09:04)
--- NOTE | 2017-01-28 09:14 | XRay Report ---
Portable chest Date: 01/28/2017 Clinical history: Shortness of breath Comparison: 01/27/2017 Technique: Portable AP sitting chest Findings: The heart is minimally enlarged with prior median sternotomy. Right IJ CVP line with tip in right atrium. Residual atelectasis at the lung bases with no definite pneumothorax. Stable mediastinum and osseous structures. Impression: Status post median sternotomy with no significant change in the appearance of the chest. Residual atelectasis at the lung bases. PROCEDURE INTERPRETED AT [facility] DEPARTMENT OF RADIOLOGY Final Report Signed by: Dr. Jacqueline Grijalva
--- NOTE | 2017-01-28 16:56 | Hospitalist Progress Note ---
Assessment and Plan (1) Type 2 diabetes mellitus Status: Acute Assessment and plan: 01/26/2017: Improving postoperative glucose control. Target glucose 150 mg percent with range of 25 up or down. Hemoglobin A1c 6.9% measured 01/25/17. Patient is receiving max oral dose Glucotrol , metformin 1000 mg twice daily , with Lantus 15 units subcu every morning. He also receives regular insulin every 4 hours sliding scale protocol. 01/27/2017: Basal Lantus dose decreased to reduce symptomatic hypoglycemia risk. Continue monitoring. Current Visit: Yes (2) Essential hypertension Status: Chronic Assessment and plan: 01/26/2017: Good blood pressure and pulse rate control. Patient is receiving Norvasc 10 mg p.o. with lisinopril 40 mg p.o. daily, and hydralazine 25 mg 3 times daily. 01/27/2017: Patient's blood pressure and pulse are well-controlled. Continue current medication combination. Current Visit: Yes (3) Hypothyroidism Status: Chronic Assessment and plan: 01/26/2017: Patient receives 112 mcg daily Synthroid dose. Check serum TSH and free T4 levels. Titrate Synthroid dose accordingly. 01/27/2017: Patient has normal range TSH 1.78 and slightly increased free T4 level 1.6. I recommend that he continue with 112 mcg daily Synthroid supplementation. Current Visit: Yes (4) Thrombocytopenia Status: Acute Assessment and plan: 01/26/2017: Today's platelet count measures 115,000. Patient is not receiving heparin products or other medications known to cause thrombocytopenia. Continue monitoring daily CBC 01/27/2017: Thrombo-cytopenia resolved. Continue monitoring. Recheck CBC in a.m. Current Visit: Yes (5) Dyslipidemia Status: Chronic Assessment and plan: 01/26/2017: Patient is receiving Zocor 40 mg p.o. q. evening. Check fasting lipid panel in a.m. 01/27/2017: Fasting lipid panel total cholesterol 107, LDL 58, HDL 27, triglycerides 133 Patient is tolerating Zocor 40 mg q. evening Current Visit: Yes (6) S/P CABG x 2 Status: Acute Assessment and plan: 01/26/2017 : Plus bio prosthetic aortic valve replacement 2 days ago. 01/28/2017: No postoperative surgical complications noted. Continue management by CT surgery attending. Current Visit: Yes (7) Peripheral arterial disease Status: Chronic Assessment and plan: 01/26/2017: Patient gives history of remote right BKA 1998 for nonhealing infected foot ulcers. Walks with a prosthesis. Gait assessment for strengthening and stability. 01/28/2017: No acute limb ischemia. Continue monitoring. Current Visit: Yes Hospitalist: Subjective Interval history: 01/28/2017: Patient is alert and oriented. He is tolerating current medications. His blood glucose control is improving. I decreased her basal Lantus dose to reduce risk of symptomatic hypoglycemia. Exam - Constitutional Vitals: Period Temp Pulse Resp BP Sys/Padron Pulse Ox Last 24 Hr 97.6 F-98.7 F 66-77 16-20 110-143/45-60 93-98 General appearance: morbidly obese - Head Head exam: Present: normal inspection - Neck Neck exam: Absent: meningismus, tenderness - Respiratory Respiratory exam: Present: clear to auscultation bilaterally. Absent: rales, wheezes - Cardiovascular Cardiovascular exam: Present: regular rate and rhythm - GI/Abdominal GI/Abdominal exam: Present: normal bowel sounds, distended, soft. Absent: tenderness, rebound - Extremities Exam Extremities exam: Absent: calf tenderness, edema - Back Exam Back exam: Present: other (Well-healed right BKA stump. Patient is able to ambulate wearing right lower leg prosthesis. PT consult requested) - Neurological Exam Neurological exam: Present: alert, oriented X3 Results - Labs CBC & BMP: 01/28/17 04:22 01/28/17 04:22 Quality Measures - VTE Contraindication to Pharmacological VTE Prophylaxis: High Risk of Bleeding - Stroke Symptom Onset Unknown: No Specialty Discharge - Follow Up or Referrals
[2017-01-28] MEDS: SIMVASTATIN 40 MG TABLET PO SCH (21:02)
[2017-01-29] MEDS: INSULIN REGULAR 100 UNIT/ML SUBCUT SCH ×4 (01:04→15:03)
[2017-01-29] MEDS: LATANOPROST 0.005% OPH SOLN 2.5 ML BOTTLE BOTH EYES SCH (01:04)
[2017-01-29] MEDS: LEVOTHYROXINE 112 MCG TABLET PO SCH (06:00)
[2017-01-29] MEDS: FERROUS SULFATE 325 MG TABLET PO SCH (09:26)
[2017-01-29] MEDS: amLODIPine 10 MG TABLET PO SCH (09:26)
[2017-01-29] MEDS: LISINOPRIL 20 MG TABLET PO SCH (09:26)
[2017-01-29] MEDS: hydrALAZINE 25 MG TABLET PO SCH (09:26)
[2017-01-29] MEDS: PANTOPRAZOLE 40 MG TABLET PO SCH (09:26)
[2017-01-29] MEDS: DOCUSATE SODIUM 100 MG CAPSULE PO SCH (09:26)
[2017-01-29] MEDS: glipiZIDE 10 MG TABLET PO SCH (09:26)
[2017-01-29] MEDS: ASPIRIN EC 81 MG TABLET PO SCH (09:27)
--- NOTE | 2017-01-29 09:27 | Discharge Summary ---
Hospital Course - Hospital Course Hospital Course: History of present illness: Patient is a 71-year-old man who has been followed by Dr. Doe for some time with known aortic valvular stenosis. He become increasingly symptomatic and Dr. Doe felt that he was approaching the time when aortic valve replacement would be necessary. Echocardiogram revealed a valve area of 0.7 cm. Patient was admitted for cardiac catheterization which demonstrated additionally that the patient had critical three-vessel coronary disease and he was admitted for aortic valve replacement and coronary bypass grafting. Past medical history review of systems social history and family history are documented in his admission note. Hospital course: Patient was taken to surgery where two-vessel bypass grafting was carried out with bilateral internal mammary artery grafting to the anterior descending and circumflex marginal coronary arteries. The aortic valve was replaced with a pericardial prosthesis and the patient tolerated procedure well. Postoperative course was essentially uncomplicated and he was discharged home on the fifth postoperative day. He is instructed to return for follow-up in 1 month and discharge medications are listed below. Specialty Discharge - Follow Up or Referrals Follow up with: Partha Márquez MD [Physician] - 1 Month Discharge Plan - Discharge Data Disposition: Disch To Home/Self Care Condition at Discharge: Stable Discharge Diet: advance to your usual diet Activity: resume usual activities as tolerated Hygiene: no restrictions Weight Bearing at Discharge: full weight bearing Driving: not for (10 days) - Discharge Medications New oxyCODONE/ACETAMINOPHEN 5-325 [Percocet 5-325] 1 tablet PO Q4H PRN tablet PRN Reason: Pain Mild (1-3) Continue Simvastatin [Zocor] 40 mg PO BEDTIME metFORMIN [Glucophage] 850 mg PO BID W/MEALS Lisinopril [Zestril] 40 mg PO DAILY Latanoprost 0.005% Oph Soln [Xalatan 0.005% Oph Soln] 1 drop BOTH EYES BEDTIME glipiZIDE [Glipizide] 10 mg PO DAILY Exenatide [Byetta] 10 mcg SQ BID amLODIPine [Norvasc] 20 mg PO DAILY Aspirin [Ecotrin] 81 mg PO DAILY Timolol 0.5% Oph Soln [Timoptic 0.5%] 1 drop BOTH EYES DAILY Saxagliptin HCl [Onglyza] 5 mg PO DAILY Levothyroxine Tab [Synthroid Tab] 112 mcg PO DAILY@0700 - Follow Up or Referral - Forms/Instructions Instructions: Heart Healthy Diet (GEN), Coronary Artery Bypass Graft, Automatic Nailing Machine Feeder (GEN), Sternal Precautions, Automatic Nailing Machine Feeder (GEN) Exam - Constitutional Vitals: Period Temp Pulse Resp BP Sys/Padron Pulse Ox Last 24 Hr 97.7 F-100.3 F 68-77 16-20 109-146/45-66 96-97 Discharge Results Procedures and tests throughout hospitalization: Pending Orders 01/23/17 10:39 Fresh Frozen Plasma Routine Red Blood Cells Leuko Red Routine Single Donor Platelets Routine Type and Screen Routine 01/30/17 04:00 XR chest 2V IN AM Bilirubin Profile Adult IN AM Comp Blood Count Auto Diff IN AM Comprehensive Metabolic Panel IN AM Hepatic (Liver) Panel IN AM Magnesium IN AM Troponin,CKMB & Ck Total IN AM 01/31/17 04:00 XR chest 2V IN AM Bilirubin Profile Adult IN AM Comp Blood Count Auto Diff IN AM Comprehensive Metabolic Panel IN AM Hepatic (Liver) Panel IN AM Magnesium IN AM Troponin,CKMB & Ck Total IN AM Labs on day of discharge: Labs from last 24 hours 01/29/17 01/28/17 01/28/17 07:15 21:02 16:14 POC Glucose 76 79 80 01/28/17 11:31 POC Glucose 109 H DS: Provider Date of admission: 01/23/17 10:24 Primary care physician: Angel Hsieh MD Attending physician on admission: Partha Márquez MD Consults: 01/25/17 16:15 Consult to Physician [CONS] Routine Comment: management of diabetes Consulting Provider: [facility] Person Notified: Dr Street Date Notified: 01/25/17 Time Notified: 16:30 Consult Notification Comment: notified of consult 01/26/17 08:22 Consult to Cardiac Rehabilitation [CONS] Routine Reason for Cardiac Rehabilitation: Other Consult Comment: Post CABG/heart surgery Consult to [facility], Educator [CONS] Routine Reason for Credit And Collection Manager: Diabetes Education Initial Insulin Education Consult Comment: insulin education Consult to Dietitian [CONS] Routine Reason for Dietitian: Dietary Consult Consult Comment: Cardiac, low salt, low cholesterol diet Consult to Physical Therapy [CONS] Routine Reason for Physical Therapy: Other Consult Comment: CV Rehab Discharging clinician: Partha Márquez MD Expected date of discharge: 01/29/17
[2017-01-29] MEDS: INSULIN GLARGINE 100 UNIT/ML SUBCUT SCH (09:30)
[2017-01-29] MEDS: metFORMIN 500 MG TABLET PO SCH (09:30)
[2017-01-29] MEDS: TIMOLOL 0.5% OPH SOLN 5 ML BOTTLE BOTH EYES SCH (09:30)
[2017-01-29] MEDS: CHLORHEXIDINE 0.12% ORAL RINSE 60 ML BOTTLE SWISH/SPIT SCH (09:31)
--- NOTE | 2017-01-29 09:58 | Event Note ---
Mr. Altamirano is doing well today. Dr. Márquez has discharged him with follow-up and appropriate medical therapy. He has no complaints. On exam he is afebrile vital signs stable. Cardiovascular exam revealed regular rate and rhythm. Lungs clear. Abdomen soft nontender. Extremities no clubbing cyanosis or edema. Plan okay to discharge with appropriate follow-up per Dr. Márquez.
[2017-01-29 11:30] VITALS: BP 129/65
== END 2017-01-29 13:25 | disposition home or self-care (01) | DRG 220 ==
LOC: N.TELES 10:24 → N.CVR 01-24 07:18 → N.ICU 01-25 09:16 → N.TELES 01-26 11:22
PROC: CABGAVR (ICD-10-PCS; 2017-01-24 06:45)